=== PATIENT | male | born 1960 | race Caucasian/White ===

== ENCOUNTER 2017-03-12 01:05 | Emergency (ER) | payer OTHER ==
[~2017-03-12] VITALS: Ht 170.2 cm; Wt 86.4 kg
[~2017-03-12 01:05] MED LIST: SULF1TAB42 PO
[2017-03-12 01:54] LABS: BASOPHILS % (AUTO) 0.3 % (0.0-2.0); EOSINOPHILS % (AUTO) 1.4 % (1.0-6.0); HEMATOCRIT 39.8 % (41-53); HEMOGLOBIN 13.7 g/dL (13.5-17.5); LYMPHOCYTES % (AUTO) 11.8 % (22.0-44.0); MEAN CORPUSCULAR HEMOGLOBIN 32.4 pg (26.0-34.0); MEAN CORPUSCULAR HGB CONC 34.3 G/dL (31.0-37.0); MEAN CORPUSCULAR VOLUME 95 fL (80-100); MONOCYTES # (AUTO) 0.5 K/uL (0.1-1.0); MONOCYTES % (AUTO) 5.7 % (2.0-9.0); NEUTROPHILS # (AUTO) 6.7 K/uL (1.8-7.7); NEUTROPHILS % (AUTO) 80.8 % (40.0-70.0); PLATELET COUNT (AUTO) 296 K/uL (150-450); RED BLOOD CELL COUNT(AUTO) 4.21 MIL/uL (4.50-5.90); RED CELL DISTRIBUTION WIDTH 13.6 % (11.5-14.5); WHITE BLOOD COUNT (AUTO) 8.3 K/uL (4.5-11.0)
[2017-03-12 01:56] LABS: ANION GAP 12 mmol/L (8-16); CARBON DIOXIDE 23 mmol/L (22-29); CHLORIDE 101 mmol/L (98-107); CREATININE 0.89 mg/dL (0.60-1.30); GLOMERULAR FILTR. RATE CALC > 60 mL/min (>60); POTASSIUM 3.7 mmol/L (3.5-5.1); SODIUM SERUM 136 mmol/L (136-145); UREA NITROGEN, BLOOD 11 mg/dL (7-18)
[2017-03-12] MEDS ORDERED: CLINDAMYCIN HCL 150 MG CAPSULE PO ONE (02:00)
[2017-03-12] MEDS ORDERED: CefTRIAXone SODIUM 1 GM/VIAL IM ONE (02:00)
[2017-03-12] MEDS ORDERED: LIDOCAINE HCL/PF 1% 2 ML VIAL IM ONE (02:00)
[2017-03-12] MEDS ORDERED: TraMADol HCL 50 MG TABLET PO ONE (02:00)
[2017-03-12 02:02] LABS: ALANINE AMINOTRANSFERASE 29 U/L (12-78); ALBUMIN 3.4 g/dL (3.4-5.0); ASPARTATE AMINOTRANSFERASE 14 U/L (15-37); BILIRUBIN,TOTAL 0.4 mg/dL (0.1-1.0); TOTAL PROTEIN, SERUM 7.7 g/dL (6.4-8.2)
[2017-03-12 02:59] VITALS: BP 133/81
== END 2017-03-12 03:06 | disposition home or self-care (01) ==
LOC: EMS 01:08
DX: L03.116 Cellulitis of left lower limb (principal); M79.89 Other specified soft tissue disorders; F15.10 Other stimulant abuse, uncomplicated; F17.210 Nicotine dependence, cigarettes, uncomplicated
CPT/HCPCS: 36415; 73630; 80053; 85025; 87040; 96372; 99285; 99406; J0696; J3490

== ENCOUNTER 2018-03-01 23:34 | Emergency (ER) | payer OTHER ==
[~2018-03-01] VITALS: Ht 170.2 cm; Wt 90.9 kg
[2018-03-02 00:38] LABS: APPEARANCE,URINE CLOUDY (CLEAR); BILIRUBIN,URINE NEGATIVE (NEGATIVE); GLUCOSE, URINE (UA) NEGATIVE (NEGATIVE); KETONES,URINE NEGATIVE (NEGATIVE); LEUKOCYTE ESTERASE ,URINE LARGE (NEGATIVE); NITRATE,URINE NEGATIVE (NEGATIVE); OCCULT BLOOD,URINE MODERATE (NEGATIVE); PROTEIN,URINE TRACE (NEGATIVE); UROBILINOGEN,URINE 0.2 mg/dL (<=1.0)
[2018-03-02 00:49] LABS: EOSINOPHILS % (AUTO) 2.2 % (1.0-6.0); HEMOGLOBIN 14.1 g/dL (13.5-17.5); LYMPHOCYTES # (AUTO) 1.2 K/uL (1.0-4.8); MEAN CORPUSCULAR HEMOGLOBIN 32.7 pg (26.0-34.0); MEAN CORPUSCULAR HGB CONC 35.3 G/dL (31.0-37.0); MEAN CORPUSCULAR VOLUME 93 fL (80-100); MONOCYTES # (AUTO) 0.8 K/uL (0.1-1.0); MONOCYTES % (AUTO) 8.5 % (2.0-9.0); NEUTROPHILS # (AUTO) 7.2 K/uL (1.8-7.7); NEUTROPHILS % (AUTO) 75.3 % (40.0-70.0); PLATELET COUNT (AUTO) 307 K/uL (150-450); RED BLOOD CELL COUNT(AUTO) 4.32 MIL/uL (4.50-5.90); RED CELL DISTRIBUTION WIDTH 12.5 % (11.5-14.5)
[2018-03-02 01:06] LABS: ANION GAP 9 mmol/L (8-16); CARBON DIOXIDE 26 mmol/L (22-29); CHLORIDE 98 mmol/L (98-107); CREATININE 1.02 mg/dL (0.60-1.30); GLOMERULAR FILTR. RATE CALC > 60 mL/min (>60); GLUCOSE,RANDOM 148 mg/dL (70-110); SODIUM SERUM 133 mmol/L (136-145); UREA NITROGEN, BLOOD 9 mg/dL (7-18)
[2018-03-02 01:12] LABS: ALANINE AMINOTRANSFERASE 34 U/L (12-78); ALBUMIN 3.4 g/dL (3.4-5.0); ALKALINE PHOSPHATASE 97 U/L (46-116); ASPARTATE AMINOTRANSFERASE 16 U/L (15-37); BILIRUBIN,TOTAL 0.5 mg/dL (0.1-1.0); TOTAL PROTEIN, SERUM 7.8 g/dL (6.4-8.2)
[2018-03-02 01:26] LABS: BACTERIA,URINE Moderate /HPF (None Seen); SQUAMOUS EPITHELIAL CELL,UR Few /LPF (None Seen); WBC,URINE 51-100 /HPF (0-5)
[2018-03-02 01:31] VITALS: BP 136/86
== END 2018-03-02 02:45 | disposition home or self-care (01) ==
LOC: EMS 23:35
DX: J40 Bronchitis, not specified as acute or chronic (principal); R07.89 Other chest pain; F15.90 Other stimulant use, unspecified, uncomplicated; F17.210 Nicotine dependence, cigarettes, uncomplicated
CPT/HCPCS: 87086; 93005; 99285

== ENCOUNTER 2018-03-06 02:44 | Emergency (ER) | payer OTHER ==
[~2018-03-06] VITALS: Ht 170.2 cm; Wt 90.9 kg
[2018-03-06 04:38] LABS: BASOPHILS % (AUTO) 0.9 % (0.0-2.0); EOSINOPHILS % (AUTO) 4.7 % (1.0-6.0); HEMATOCRIT 39.4 % (41-53); HEMOGLOBIN 13.8 g/dL (13.5-17.5); LYMPHOCYTES # (AUTO) 1.3 K/uL (1.0-4.8); MEAN CORPUSCULAR HEMOGLOBIN 32.2 pg (26.0-34.0); MEAN CORPUSCULAR VOLUME 92 fL (80-100); MONOCYTES # (AUTO) 1.1 K/uL (0.1-1.0); MONOCYTES % (AUTO) 11.2 % (2.0-9.0); NEUTROPHILS # (AUTO) 6.7 K/uL (1.8-7.7); NEUTROPHILS % (AUTO) 69.2 % (40.0-70.0); PLATELET COUNT (AUTO) 342 K/uL (150-450); RED BLOOD CELL COUNT(AUTO) 4.28 MIL/uL (4.50-5.90); RED CELL DISTRIBUTION WIDTH 12.5 % (11.5-14.5)
[2018-03-06 04:46] LABS: ANION GAP 8 mmol/L (8-16); CALCIUM, TOTAL 8.8 mg/dL (8.8-10.5); CARBON DIOXIDE 27 mmol/L (22-29); CHLORIDE 101 mmol/L (98-107); CREATININE 0.93 mg/dL (0.60-1.30); GLOMERULAR FILTR. RATE CALC > 60 mL/min (>60); GLUCOSE,RANDOM 126 mg/dL (70-110); POTASSIUM 4.1 mmol/L (3.5-5.1); SODIUM SERUM 136 mmol/L (136-145); UREA NITROGEN, BLOOD 10 mg/dL (7-18)
[2018-03-06 04:48] LABS: INR 0.9 (0.9-1.1); PROTHROMBIN TIME 9.8 SEC (9.4-11.6)
[2018-03-06 04:52] LABS: ALANINE AMINOTRANSFERASE 28 U/L (12-78); ALBUMIN 3.1 g/dL (3.4-5.0); ALKALINE PHOSPHATASE 94 U/L (46-116); ASPARTATE AMINOTRANSFERASE 13 U/L (15-37); BILIRUBIN,TOTAL 0.4 mg/dL (0.1-1.0); LIPASE 149 U/L (73-393); TOTAL PROTEIN, SERUM 7.5 g/dL (6.4-8.2)
[2018-03-06 04:55] LABS: B-TYPE NATRIURETIC PEPTIDE 16 pg/mL (0-100)
[2018-03-06] MEDS ORDERED: ONDANSETRON HCL 4 MG/2 ML VIAL IVP ONE (05:00)
[2018-03-06] MEDS ORDERED: FentaNYL CITRATE-PF 100 MCG/2 ML VIAL IVP ONE (05:00)
[2018-03-06] MEDS ORDERED: BARIUM SULFATE 0.1% SUSPENSION 450 ML BOTTLE PO ONE (05:00)
[2018-03-06] MEDS ORDERED: IOVERSOL 350 MG/ML 150 ML VIAL ONE (05:31)
[2018-03-06] MEDS ORDERED: SODIUM CHLORIDE 0.9% 100 ML ONE (05:32)
[2018-03-06] MEDS ORDERED: DOXYCYCLINE HYCLATE 100 MG CAPSULE PO ONE (06:45)
[2018-03-06] MEDS ORDERED: CefTRIAXone SODIUM 1 GM in DEXTROSE 5%-WATER 10 ML IV ONE (06:45)
[2018-03-06 06:54] LABS: AMPHET/METH SCREEN,URINE POSITIVE (NEGATIVE); BARBITURATE SCREEN, URINE NEGATIVE (NEGATIVE); BENZODIAZEPINES SCREEN,URINE NEGATIVE (NEGATIVE); CANNABINOID SCREEN,URINE NEGATIVE (NEGATIVE); COCAINE SCREEN,URINE NEGATIVE (NEGATIVE); METHADONE SCREEN, URINE NEGATIVE (NEGATIVE); OPIATE SCREEN,URINE NEGATIVE (NEGATIVE)
[2018-03-06 06:55] LABS: PHENCYCLIDINE SCREEN,URINE NEGATIVE (NEGATIVE)
[2018-03-06 07:06] LABS: APPEARANCE,URINE CLEAR (CLEAR); BILIRUBIN,URINE NEGATIVE (NEGATIVE); GLUCOSE, URINE (UA) NEGATIVE (NEGATIVE); KETONES,URINE NEGATIVE (NEGATIVE); LEUKOCYTE ESTERASE ,URINE NEGATIVE (NEGATIVE); NITRATE,URINE NEGATIVE (NEGATIVE); OCCULT BLOOD,URINE NEGATIVE (NEGATIVE); PROTEIN,URINE NEGATIVE (NEGATIVE)
[2018-03-06 07:11] VITALS: BP 133/87
[2018-03-06 07:17] LABS: BACTERIA,URINE None Seen /HPF (None Seen); RBC,URINE None Seen /HPF (0-2); SQUAMOUS EPITHELIAL CELL,UR Few /LPF (None Seen)
== END 2018-03-06 07:52 | disposition home or self-care (01) ==
LOC: EMS 02:44
DX: N45.1 Epididymitis (principal); K76.0 Fatty (change of) liver, not elsewhere classified; F15.10 Other stimulant abuse, uncomplicated; M79.89 Other specified soft tissue disorders; R11.10 Vomiting, unspecified; R06.02 Shortness of breath; F31.9 Bipolar disorder, unspecified; F17.210 Nicotine dependence, cigarettes, uncomplicated
CPT/HCPCS: 36415; 71045; 74177; 76870; 80053; 80307; 81001; 83605; 83690; 83880; 84484; 85025; 85610; 85730; 87040; 87086; 93005; 96365; 96375; 99285; G0480; J0696; J2405; J3010; J7050; J7060; Q9967; Z7610

== ENCOUNTER 2018-03-10 21:36 | Emergency (ER) | payer OTHER ==
[~2018-03-10] VITALS: Ht 167.6 cm; Wt 90.9 kg
[2018-03-10] MEDS ORDERED: ABX PO (21:51)
[2018-03-10 22:39] LABS: APPEARANCE,URINE CLEAR (CLEAR); BILIRUBIN,URINE NEGATIVE (NEGATIVE); GLUCOSE, URINE (UA) NEGATIVE (NEGATIVE); KETONES,URINE NEGATIVE (NEGATIVE); LEUKOCYTE ESTERASE ,URINE TRACE (NEGATIVE); NITRATE,URINE NEGATIVE (NEGATIVE); OCCULT BLOOD,URINE NEGATIVE (NEGATIVE); PH,URINE 6.5 (5.0-8.0); PROTEIN,URINE NEGATIVE (NEGATIVE); UROBILINOGEN,URINE 0.2 mg/dL (<=1.0)
[2018-03-10 22:52] LABS: RBC,URINE None Seen /HPF (0-2)
[2018-03-10 22:53] LABS: BACTERIA,URINE None Seen /HPF (None Seen); SQUAMOUS EPITHELIAL CELL,UR Rare /LPF (None Seen)
[2018-03-10 23:59] LABS: BASOPHILS % (AUTO) 0.6 % (0.0-2.0); EOSINOPHILS % (AUTO) 2.8 % (1.0-6.0); HEMATOCRIT 37.9 % (41-53); HEMOGLOBIN 13.3 g/dL (13.5-17.5); LYMPHOCYTES # (AUTO) 1.4 K/uL (1.0-4.8); LYMPHOCYTES % (AUTO) 18.4 % (22.0-44.0); MEAN CORPUSCULAR HEMOGLOBIN 32.7 pg (26.0-34.0); MEAN CORPUSCULAR HGB CONC 35.1 G/dL (31.0-37.0); MEAN CORPUSCULAR VOLUME 93 fL (80-100); MONOCYTES # (AUTO) 0.7 K/uL (0.1-1.0); MONOCYTES % (AUTO) 9.6 % (2.0-9.0); NEUTROPHILS # (AUTO) 5.1 K/uL (1.8-7.7); NEUTROPHILS % (AUTO) 68.6 % (40.0-70.0); PLATELET COUNT (AUTO) 321 K/uL (150-450); RED BLOOD CELL COUNT(AUTO) 4.07 MIL/uL (4.50-5.90); RED CELL DISTRIBUTION WIDTH 12.5 % (11.5-14.5)
[2018-03-11] MEDS ORDERED: CEPHALEXIN MONOHYDRATE 500 MG CAPSULE PO ONE
[2018-03-11] MEDS ORDERED: ACETAMINOPHEN 500 MG TABLET PO ONE
[2018-03-11 00:06] LABS: ANION GAP 8 mmol/L (8-16); CALCIUM, TOTAL 8.5 mg/dL (8.8-10.5); CARBON DIOXIDE 26 mmol/L (22-29); CHLORIDE 101 mmol/L (98-107); CREATININE 0.82 mg/dL (0.60-1.30); GLOMERULAR FILTR. RATE CALC > 60 mL/min (>60); GLUCOSE,RANDOM 91 mg/dL (70-110); POTASSIUM 3.8 mmol/L (3.5-5.1); SODIUM SERUM 135 mmol/L (136-145); UREA NITROGEN, BLOOD 7 mg/dL (7-18)
[2018-03-11 00:12] LABS: ALANINE AMINOTRANSFERASE 25 U/L (12-78); ALBUMIN 3.1 g/dL (3.4-5.0); ALKALINE PHOSPHATASE 87 U/L (46-116); ASPARTATE AMINOTRANSFERASE 11 U/L (15-37); BILIRUBIN,TOTAL 0.2 mg/dL (0.1-1.0); LIPASE 117 U/L (73-393); TOTAL PROTEIN, SERUM 7.4 g/dL (6.4-8.2)
[2018-03-11 00:54] VITALS: BP 138/88
[2018-03-11 01:17] LABS: AMPHET/METH SCREEN,URINE POSITIVE (NEGATIVE); BARBITURATE SCREEN, URINE NEGATIVE (NEGATIVE); BENZODIAZEPINES SCREEN,URINE NEGATIVE (NEGATIVE); CANNABINOID SCREEN,URINE NEGATIVE (NEGATIVE); COCAINE SCREEN,URINE NEGATIVE (NEGATIVE); METHADONE SCREEN, URINE NEGATIVE (NEGATIVE); OPIATE SCREEN,URINE NEGATIVE (NEGATIVE); PHENCYCLIDINE SCREEN,URINE NEGATIVE (NEGATIVE)
== END 2018-03-11 00:56 | disposition home or self-care (01) ==
LOC: EMS 21:37
DX: N45.1 Epididymitis (principal); F41.9 Anxiety disorder, unspecified; F15.10 Other stimulant abuse, uncomplicated; F31.9 Bipolar disorder, unspecified; K21.9 Gastro-esophageal reflux disease without esophagitis; F17.210 Nicotine dependence, cigarettes, uncomplicated
CPT/HCPCS: 99284; 99406

== ENCOUNTER 2018-09-06 18:11 | Emergency (ER) | payer OTHER ==
[~2018-09-06] VITALS: Ht 167.6 cm; Wt 84.1 kg
[~2018-09-06 18:11] MED LIST changes: +ABX PO; -SULF1TAB42 PO
[2018-09-06 18:25] VITALS: BP 156/96
[2018-09-06 19:16] LABS: APPEARANCE,URINE CLEAR (CLEAR); BILIRUBIN,URINE NEGATIVE (NEGATIVE); GLUCOSE, URINE (UA) >=1000 mg/dL (NEGATIVE); KETONES,URINE NEGATIVE (NEGATIVE); LEUKOCYTE ESTERASE ,URINE NEGATIVE (NEGATIVE); NITRATE,URINE NEGATIVE (NEGATIVE); OCCULT BLOOD,URINE NEGATIVE (NEGATIVE); PROTEIN,URINE NEGATIVE (NEGATIVE); UROBILINOGEN,URINE 0.2 mg/dL (<=1.0)
[2018-09-06 19:54] LABS: WBC,URINE 0-2 /HPF (0-5)
[2018-09-06 19:55] LABS: BACTERIA,URINE None Seen /HPF (None Seen)
[2018-09-06 19:56] LABS: RBC,URINE 0-2 /HPF (0-2); SQUAMOUS EPITHELIAL CELL,UR Rare /LPF (None Seen)
== END 2018-09-06 21:23 | disposition left against medical advice (07) ==
LOC: EMS 18:11
DX: R11.2 Nausea with vomiting, unspecified (principal); Z53.21 Procedure and treatment not carried out due to patient leaving prior to being seen by health care provider
CPT/HCPCS: 93005

== ENCOUNTER 2018-10-10 19:49 | Emergency (ER) | payer OTHER ==
[~2018-10-10] VITALS: Ht 167.6 cm; Wt 90.9 kg
[~2018-10-10 19:49] MED LIST changes: -ABX PO; +GLIP5 PO; +METF-960 PO
[2018-10-10] MEDS ORDERED: METF-960 PO (20:22)
[2018-10-10 20:28] LABS: GLUCOSE,POINT OF CARE 345 MG/DL (70-110)
[2018-10-10 20:55] LABS: EOSINOPHILS % (AUTO) 0.9 % (1.0-6.0); HEMATOCRIT 37.7 % (41-53); LYMPHOCYTES # (AUTO) 0.8 K/uL (1.0-4.8); LYMPHOCYTES % (AUTO) 17.2 % (22.0-44.0); MEAN CORPUSCULAR HEMOGLOBIN 31.6 pg (26.0-34.0); MEAN CORPUSCULAR HGB CONC 34.4 G/dL (31.0-37.0); MEAN CORPUSCULAR VOLUME 92 fL (80-100); MONOCYTES # (AUTO) 0.5 K/uL (0.1-1.0); MONOCYTES % (AUTO) 10.7 % (2.0-9.0); NEUTROPHILS # (AUTO) 3.4 K/uL (1.8-7.7); NEUTROPHILS % (AUTO) 70.2 % (40.0-70.0); PLATELET COUNT (AUTO) 220 K/uL (150-450); RED CELL DISTRIBUTION WIDTH 13.4 % (11.5-14.5)
[2018-10-10 21:10] LABS: ANION GAP 15 mmol/L (8-16); CALCIUM, TOTAL 9.5 mg/dL (8.8-10.5); CARBON DIOXIDE 20 mmol/L (22-29); CHLORIDE 97 mmol/L (98-107); CREATININE 0.93 mg/dL (0.60-1.30); GLOMERULAR FILTR. RATE CALC > 60 mL/min (>60); GLUCOSE,RANDOM 336 mg/dL (70-110); POTASSIUM 4.5 mmol/L (3.5-5.1); SODIUM SERUM 132 mmol/L (136-145); UREA NITROGEN, BLOOD 14 mg/dL (7-18)
[2018-10-10 21:17] LABS: ALANINE AMINOTRANSFERASE 22 U/L (12-78); ALBUMIN 3.2 g/dL (3.4-5.0); ALKALINE PHOSPHATASE 101 U/L (46-116); ASPARTATE AMINOTRANSFERASE 22 U/L (15-37); BILIRUBIN,TOTAL 0.5 mg/dL (0.1-1.0); LIPASE 207 U/L (73-393); TOTAL PROTEIN, SERUM 7.3 g/dL (6.4-8.2)
[2018-10-10 21:54] LABS: AMPHET/METH SCREEN,URINE POSITIVE (NEGATIVE); APPEARANCE,URINE CLEAR (CLEAR); BARBITURATE SCREEN, URINE NEGATIVE (NEGATIVE); BENZODIAZEPINES SCREEN,URINE NEGATIVE (NEGATIVE); BILIRUBIN,URINE NEGATIVE (NEGATIVE); CANNABINOID SCREEN,URINE NEGATIVE (NEGATIVE); COCAINE SCREEN,URINE NEGATIVE (NEGATIVE); GLUCOSE, URINE (UA) >=1000 mg/dL (NEGATIVE); KETONES,URINE >=80 mg/dL (NEGATIVE); LEUKOCYTE ESTERASE ,URINE NEGATIVE (NEGATIVE); METHADONE SCREEN, URINE NEGATIVE (NEGATIVE); NITRATE,URINE NEGATIVE (NEGATIVE); OCCULT BLOOD,URINE NEGATIVE (NEGATIVE); OPIATE SCREEN,URINE NEGATIVE (NEGATIVE); PH,URINE 5.5 (5.0-8.0); PHENCYCLIDINE SCREEN,URINE NEGATIVE (NEGATIVE); PROTEIN,URINE NEGATIVE (NEGATIVE); UROBILINOGEN,URINE 0.2 mg/dL (<=1.0)
[2018-10-10 22:09] LABS: BACTERIA,URINE None Seen /HPF (None Seen); RBC,URINE None Seen /HPF (0-2); SQUAMOUS EPITHELIAL CELL,UR None Seen /LPF (None Seen); WBC,URINE 0-2 /HPF (0-5)
[2018-10-10] MEDS ORDERED: SODIUM CHLORIDE 0.9% 1,000 ML IV ONE ×2 (22:45→23:45)
[2018-10-10] MEDS ORDERED: INSULIN REGULAR, HUMAN 100 UNITS/ML IVP ONE (22:45)
[2018-10-10] MEDS ORDERED: INSULIN REGULAR, HUMAN 100 UNITS/ML SQ ONE (22:45)
[2018-10-10 23:43] LABS: GLUCOSE,POINT OF CARE 279 MG/DL (70-110)
[2018-10-11] MEDS ORDERED: INSULIN REGULAR, HUMAN 100 UNITS/ML IVP ONE
[2018-10-11 00:15] VITALS: BP 129/75
[2018-10-11 00:28] LABS: GLUCOSE,POINT OF CARE 280 MG/DL (70-110)
== END 2018-10-11 00:20 | disposition home or self-care (01) ==
LOC: EMS 19:50
DX: R73.9 Hyperglycemia, unspecified (principal); E86.0 Dehydration; F31.9 Bipolar disorder, unspecified; K21.9 Gastro-esophageal reflux disease without esophagitis; F15.90 Other stimulant use, unspecified, uncomplicated; F17.210 Nicotine dependence, cigarettes, uncomplicated; Z79.84 Long term (current) use of oral hypoglycemic drugs
CPT/HCPCS: 36415; 80053; 80307; 81001; 82962; 83690; 84484; 85025; 93005; 96361; 96372; 96374; 99284; J1815 ×2; J7030

== ENCOUNTER 2019-04-08 01:05 | Emergency (ER) | payer OTHER ==
[~2019-04-08] VITALS: Ht 167.6 cm; Wt 72.7 kg
[2019-04-08 01:12] VITALS: BP 135/82
[2019-04-08 01:20] LABS: GLUCOSE,POINT OF CARE 131 MG/DL (70-110)
[2019-04-08 02:22] LABS: BASOPHILS % (AUTO) 0.3 % (0.0-2.0); EOSINOPHILS % (AUTO) 1.3 % (1.0-6.0); HEMATOCRIT 38.2 % (41-53); HEMOGLOBIN 12.9 g/dL (13.5-17.5); LYMPHOCYTES % (AUTO) 15.6 % (22.0-44.0); MEAN CORPUSCULAR HEMOGLOBIN 32.6 pg (26.0-34.0); MEAN CORPUSCULAR HGB CONC 33.7 G/dL (31.0-37.0); MEAN CORPUSCULAR VOLUME 97 fL (80-100); MONOCYTES # (AUTO) 0.5 K/uL (0.1-1.0); NEUTROPHILS # (AUTO) 4.6 K/uL (1.8-7.7); NEUTROPHILS % (AUTO) 74.8 % (40.0-70.0); PLATELET COUNT (AUTO) 290 K/uL (150-450); RED BLOOD CELL COUNT(AUTO) 3.95 MIL/uL (4.50-5.90); RED CELL DISTRIBUTION WIDTH 13.9 % (11.5-14.5)
[2019-04-08 02:24] LABS: ANION GAP 11 mmol/L (8-16); CARBON DIOXIDE 20 mmol/L (22-29); CHLORIDE 105 mmol/L (98-107); CREATININE 0.86 mg/dL (0.60-1.30); GLOMERULAR FILTR. RATE CALC > 60 mL/min (>60); GLUCOSE,RANDOM 123 mg/dL (70-110); POTASSIUM 3.7 mmol/L (3.5-5.1); SODIUM SERUM 136 mmol/L (136-145); UREA NITROGEN, BLOOD 22 mg/dL (7-18)
[2019-04-08 02:31] LABS: ALANINE AMINOTRANSFERASE 45 U/L (12-78); ALBUMIN 3.5 g/dL (3.4-5.0); ALKALINE PHOSPHATASE 88 U/L (46-116); ASPARTATE AMINOTRANSFERASE 26 U/L (15-37); BILIRUBIN,TOTAL 0.4 mg/dL (0.1-1.0); TOTAL PROTEIN, SERUM 7.1 g/dL (6.4-8.2)
== END 2019-04-08 03:40 | disposition left against medical advice (07) ==
LOC: EMS 01:06
DX: R73.9 Hyperglycemia, unspecified (principal); F31.9 Bipolar disorder, unspecified; K21.9 Gastro-esophageal reflux disease without esophagitis; F17.210 Nicotine dependence, cigarettes, uncomplicated; Z53.21 Procedure and treatment not carried out due to patient leaving prior to being seen by health care provider
CPT/HCPCS: 36415; 80053; 82962; 85025; G0480

== ENCOUNTER 2019-08-25 21:58 | Emergency (ER) | payer OTHER ==
[~2019-08-25] VITALS: Ht 167.6 cm; Wt 79.5 kg
[2019-08-25 22:21] VITALS: BP 136/84
[2019-08-25 22:37] LABS: GLUCOSE,POINT OF CARE > 600 MG/DL (70-110)
[2019-08-25 22:52] LABS: BASOPHILS % (AUTO) 0.6 % (0.0-2.0); EOSINOPHILS % (AUTO) 1.3 % (1.0-6.0); HEMATOCRIT 41.1 % (41-53); HEMOGLOBIN 13.8 g/dL (13.5-17.5); LYMPHOCYTES # (AUTO) 0.8 K/uL (1.0-4.8); LYMPHOCYTES % (AUTO) 17.9 % (22.0-44.0); MEAN CORPUSCULAR HEMOGLOBIN 32.3 pg (26.0-34.0); MEAN CORPUSCULAR HGB CONC 33.6 G/dL (31.0-37.0); MEAN CORPUSCULAR VOLUME 96 fL (80-100); MONOCYTES # (AUTO) 0.4 K/uL (0.1-1.0); MONOCYTES % (AUTO) 9.2 % (2.0-9.0); NEUTROPHILS # (AUTO) 3.3 K/uL (1.8-7.7); PLATELET COUNT (AUTO) 250 K/uL (150-450); RED BLOOD CELL COUNT(AUTO) 4.28 MIL/uL (4.50-5.90); RED CELL DISTRIBUTION WIDTH 12.6 % (11.5-14.5)
[2019-08-25 23:06] LABS: ANION GAP 12 mmol/L (8-16); CARBON DIOXIDE 21 mmol/L (22-29); CHLORIDE 90 mmol/L (98-107); CREATININE 1.39 mg/dL (0.60-1.30); GLOMERULAR FILTR. RATE CALC 52 mL/min (>60); UREA NITROGEN, BLOOD 20 mg/dL (7-18)
[2019-08-25 23:09] LABS: ALANINE AMINOTRANSFERASE 28 U/L (12-78); ALBUMIN 3.2 g/dL (3.4-5.0); ALKALINE PHOSPHATASE 103 U/L (46-116); ASPARTATE AMINOTRANSFERASE 10 U/L (15-37); BILIRUBIN,TOTAL 0.5 mg/dL (0.1-1.0); TOTAL PROTEIN, SERUM 7.1 g/dL (6.4-8.2)
[2019-08-25 23:09] LABS: APPEARANCE,URINE CLEAR (CLEAR); BILIRUBIN,URINE NEGATIVE (NEGATIVE); GLUCOSE, URINE (UA) >=1000 mg/dL (NEGATIVE); KETONES,URINE NEGATIVE (NEGATIVE); LEUKOCYTE ESTERASE ,URINE NEGATIVE (NEGATIVE); NITRATE,URINE NEGATIVE (NEGATIVE); OCCULT BLOOD,URINE NEGATIVE (NEGATIVE); PROTEIN,URINE NEGATIVE (NEGATIVE); UROBILINOGEN,URINE 0.2 mg/dL (<=1.0)
[2019-08-25 23:22] LABS: BACTERIA,URINE None Seen /HPF (None Seen); RBC,URINE None Seen /HPF (0-2); SQUAMOUS EPITHELIAL CELL,UR None Seen /LPF (None Seen); WBC,URINE None Seen /HPF (0-5)
[2019-08-25 23:30] LABS: ACETONE,BLOOD NEGATIVE (NEGATIVE)
[2019-08-25 23:42] LABS: GLUCOSE,RANDOM 964 mg/dL (70-110); SODIUM SERUM 123 mmol/L (136-145)
== END 2019-08-26 02:43 | disposition left against medical advice (07) ==
LOC: EMS 22:01
DX: R73.9 Hyperglycemia, unspecified (principal); Z53.21 Procedure and treatment not carried out due to patient leaving prior to being seen by health care provider

== ENCOUNTER 2020-07-18 16:50 | Emergency (ER) | payer OTHER ==
[~2020-07-18] VITALS: Ht 170.2 cm; Wt 68.2 kg
[2020-07-18 17:09] VITALS: BP 125/71
[2020-07-18 17:21] LABS: GLUCOSE,POINT OF CARE > 600 MG/DL (70-110)
== END 2020-07-18 19:54 | disposition left against medical advice (07) ==
LOC: EMS 16:50
DX: R30.9 Painful micturition, unspecified (principal); Z53.21 Procedure and treatment not carried out due to patient leaving prior to being seen by health care provider

== ENCOUNTER 2020-07-19 01:09 | Emergency (ER) | payer OTHER ==
[~2020-07-19] VITALS: Ht 162.6 cm; Wt 69.1 kg
[2020-07-19 01:30] LABS: GLUCOSE,POINT OF CARE 454 MG/DL (70-110)
[2020-07-19] MEDS ORDERED: SODIUM CHLORIDE 0.9% 1,000 ML IV ONE (02:15)
[2020-07-19] MEDS ORDERED: INSULIN REGULAR, HUMAN 100 UNITS/ML IVP ONE (02:15)
[2020-07-19 03:48] LABS: EOSINOPHILS % (AUTO) 1.5 % (1.0-6.0); HEMATOCRIT 35.8 % (41-53); LYMPHOCYTES # (AUTO) 1.2 K/uL (1.0-4.8); LYMPHOCYTES % (AUTO) 20.5 % (22.0-44.0); MEAN CORPUSCULAR HEMOGLOBIN 31.8 pg (26.0-34.0); MEAN CORPUSCULAR HGB CONC 33.4 G/dL (31.0-37.0); MEAN CORPUSCULAR VOLUME 95 fL (80-100); MONOCYTES # (AUTO) 0.4 K/uL (0.1-1.0); MONOCYTES % (AUTO) 6.5 % (2.0-9.0); NEUTROPHILS # (AUTO) 4.3 K/uL (1.8-7.7); NEUTROPHILS % (AUTO) 70.5 % (40.0-70.0); PLATELET COUNT (AUTO) 159 K/uL (150-450); RED BLOOD CELL COUNT(AUTO) 3.77 MIL/uL (4.50-5.90); RED CELL DISTRIBUTION WIDTH 13.1 % (11.5-14.5)
[2020-07-19 03:49] LABS: APPEARANCE,URINE CLEAR (CLEAR); BILIRUBIN,URINE NEGATIVE (NEGATIVE); GLUCOSE, URINE (UA) >=1000 mg/dL (NEGATIVE); KETONES,URINE TRACE mg/dL (NEGATIVE); LEUKOCYTE ESTERASE ,URINE NEGATIVE (NEGATIVE); NITRATE,URINE NEGATIVE (NEGATIVE); OCCULT BLOOD,URINE NEGATIVE (NEGATIVE); PH,URINE 6.5 (5.0-8.0); PROTEIN,URINE NEGATIVE (NEGATIVE); UROBILINOGEN,URINE 0.2 mg/dL (<=1.0)
[2020-07-19 03:59] LABS: ALANINE AMINOTRANSFERASE 16 U/L (12-78); ALBUMIN 3.3 g/dL (3.4-5.0); ALKALINE PHOSPHATASE 93 U/L (46-116); ANION GAP 10 mmol/L (8-16); ASPARTATE AMINOTRANSFERASE 7 U/L (15-37); BILIRUBIN,TOTAL 0.3 mg/dL (0.1-1.0); CARBON DIOXIDE 25 mmol/L (22-29); CHLORIDE 94 mmol/L (98-107); CREATININE 0.91 mg/dL (0.60-1.30); GLOMERULAR FILTR. RATE CALC > 60 mL/min (>60); POTASSIUM 4.1 mmol/L (3.5-5.1); SODIUM SERUM 129 mmol/L (136-145); TOTAL PROTEIN, SERUM 7.9 g/dL (6.4-8.2); UREA NITROGEN, BLOOD 13 mg/dL (7-18)
[2020-07-19 04:01] LABS: BACTERIA,URINE Few /HPF (None Seen); RBC,URINE 0-2 /HPF (0-2); SQUAMOUS EPITHELIAL CELL,UR Few /LPF (None Seen); WBC,URINE 0-2 /HPF (0-5)
[2020-07-19 04:24] LABS: GLUCOSE,RANDOM 451 mg/dL (70-110)
[2020-07-19 06:03] VITALS: BP 117/65
== END 2020-07-19 06:43 | disposition home or self-care (01) ==
LOC: EMS 01:10
DX: E11.65 Type 2 diabetes mellitus with hyperglycemia (principal); F31.9 Bipolar disorder, unspecified; F15.90 Other stimulant use, unspecified, uncomplicated; F17.210 Nicotine dependence, cigarettes, uncomplicated; Z79.84 Long term (current) use of oral hypoglycemic drugs
CPT/HCPCS: 36415; 80053; 81001; 82009; 82962; 85025; 96361; 96374; 99283; J1815; J7030

== ENCOUNTER 2020-10-08 21:23 | Emergency (ER) | payer OTHER ==
[~2020-10-08] VITALS: Ht 170.2 cm; Wt 68.2 kg
[2020-10-08] MEDS ORDERED: INSULIN SQ (21:49)
[2020-10-08] MEDS ORDERED: MORPHINE SULFATE 2 MG/ML SYRINGE IVP ONE (23:45)
[2020-10-08] MEDS ORDERED: SODIUM CHLORIDE 0.9% 1,000 ML IV ONE (23:45)
[2020-10-08] MEDS ORDERED: VANCOMYCIN HCL 1.25 GM in DEXTROSE 5%-WATER 250 ML IV ONE (23:45)
[2020-10-08] MEDS ORDERED: 0.9% SODIUM CHLORIDE 10 ML SYRINGE IVP PRN (23:45)
[2020-10-09 01:42] LABS: BASOPHILS % (AUTO) 0.4 % (0.0-2.0); EOSINOPHILS % (AUTO) 0.2 % (1.0-6.0); HEMATOCRIT 31.1 % (41-53); HEMOGLOBIN 10.4 g/dL (13.5-17.5); LYMPHOCYTES # (AUTO) 0.8 K/uL (1.0-4.8); LYMPHOCYTES % (AUTO) 10.4 % (22.0-44.0); MEAN CORPUSCULAR HEMOGLOBIN 32.6 pg (26.0-34.0); MEAN CORPUSCULAR HGB CONC 33.6 G/dL (31.0-37.0); MEAN CORPUSCULAR VOLUME 97 fL (80-100); MONOCYTES % (AUTO) 12.3 % (2.0-9.0); NEUTROPHILS # (AUTO) 6.2 K/uL (1.8-7.7); NEUTROPHILS % (AUTO) 76.7 % (40.0-70.0); PLATELET COUNT (AUTO) 327 K/uL (150-450); RED CELL DISTRIBUTION WIDTH 12.5 % (11.5-14.5)
[2020-10-09 01:52] LABS: ANION GAP 13 mmol/L (8-16); CALCIUM, TOTAL 8.5 mg/dL (8.8-10.5); CARBON DIOXIDE 23 mmol/L (22-29); CHLORIDE 99 mmol/L (98-107); CREATININE 0.62 mg/dL (0.60-1.30); GLOMERULAR FILTR. RATE CALC > 60 mL/min (>60); GLUCOSE,RANDOM 266 mg/dL (70-110); POTASSIUM 4.1 mmol/L (3.5-5.1); SODIUM SERUM 135 mmol/L (136-145); UREA NITROGEN, BLOOD 9 mg/dL (7-18)
[2020-10-09 01:56] LABS: PROTHROMBIN TIME 10.4 SEC (9.4-11.6)
[2020-10-09 01:58] LABS: ALANINE AMINOTRANSFERASE 17 U/L (12-78); ALBUMIN 2.4 g/dL (3.4-5.0); ALKALINE PHOSPHATASE 78 U/L (46-116); ASPARTATE AMINOTRANSFERASE 8 U/L (15-37); BILIRUBIN,TOTAL 0.4 mg/dL (0.1-1.0); CREATINE KINASE, TOTAL ONLY 38 U/L (39-308)
[2020-10-09 02:01] LABS: LACTIC ACID 1.2 mmol/L (0.4-2.0)
[2020-10-09 02:30] VITALS: BP 137/85
[2020-10-09] MEDS ORDERED: CEPHALEXIN MONOHYDRATE 500 MG CAPSULE PO ONE (03:15)
[2020-10-09] MEDS ORDERED: SULFAMETHOX/TRIMETH DS 800-160 MG/TABLET PO ONE (03:15)
[2020-10-12] MEDS ORDERED: TAMS-13 PO (13:12)
[2020-10-12] MEDS ORDERED: INSU100I26 SQ (13:12)
== END 2020-10-09 03:17 | disposition home or self-care (01) ==
LOC: EMS 21:23
DX: L03.116 Cellulitis of left lower limb (principal)
CPT/HCPCS: 36415; 73590; 80053; 82009; 82550; 82962; 83605; 85025; 85610; 87040; 93005; 96365; 96366; 96375; 99285; J2270; J3370; J7060

== ENCOUNTER 2021-01-11 18:35 | Emergency (ER) | payer OTHER ==
[~2021-01-11] VITALS: Ht 170.2 cm; Wt 68.2 kg
[~2021-01-11 18:35] MED LIST changes: +INSU100I26 SQ; +TAMS-13 PO
[2021-01-11 18:56] LABS: GLUCOSE,POINT OF CARE > 600 MG/DL (70-110)
[2021-01-11] MEDS ORDERED: SODIUM CHLORIDE 0.9% 1,000 ML IV ONE (19:15)
[2021-01-11 19:19] LABS: BASOPHILS % (AUTO) 0.8 % (0.0-2.0); EOSINOPHILS % (AUTO) 0.6 % (1.0-6.0); HEMATOCRIT 36.5 % (41-53); HEMOGLOBIN 12.1 g/dL (13.5-17.5); LYMPHOCYTES % (AUTO) 25.7 % (22.0-44.0); MEAN CORPUSCULAR HEMOGLOBIN 31.7 pg (26.0-34.0); MEAN CORPUSCULAR HGB CONC 33.2 G/dL (31.0-37.0); MEAN CORPUSCULAR VOLUME 96 fL (80-100); MONOCYTES # (AUTO) 0.3 K/uL (0.1-1.0); NEUTROPHILS # (AUTO) 2.4 K/uL (1.8-7.7); NEUTROPHILS % (AUTO) 63.9 % (40.0-70.0); PLATELET COUNT (AUTO) 278 K/uL (150-450); RED BLOOD CELL COUNT(AUTO) 3.82 MIL/uL (4.50-5.90); RED CELL DISTRIBUTION WIDTH 13.8 % (11.5-14.5)
[2021-01-11] MEDS ORDERED: KETOROLAC TROMETHAMINE 30 MG/ML VIAL IVP ONE (19:30)
[2021-01-11 19:35] LABS: ALANINE AMINOTRANSFERASE 19 U/L (12-78); ALBUMIN 3.1 g/dL (3.4-5.0); ALKALINE PHOSPHATASE 81 U/L (46-116); ANION GAP 17 mmol/L (8-16); ASPARTATE AMINOTRANSFERASE 10 U/L (15-37); BILIRUBIN,TOTAL 0.2 mg/dL (0.1-1.0); CARBON DIOXIDE 20 mmol/L (22-29); CHLORIDE 92 mmol/L (98-107); CREATININE 0.96 mg/dL (0.60-1.30); GLOMERULAR FILTR. RATE CALC > 60 mL/min (>60); POTASSIUM 4.4 mmol/L (3.5-5.1); SODIUM SERUM 129 mmol/L (136-145); TOTAL PROTEIN, SERUM 7.6 g/dL (6.4-8.2); UREA NITROGEN, BLOOD 15 mg/dL (7-18)
[2021-01-11 19:37] LABS: GLUCOSE,RANDOM 700 mg/dL (70-110)
[2021-01-11] MEDS ORDERED: INSULIN REGULAR, HUMAN 100 UNITS/ML IVP ONE (19:45)
[2021-01-11] MEDS ORDERED: MORPHINE SULFATE 4 MG/ML SYRINGE IVP ONE (20:00)
[2021-01-11 20:25] VITALS: BP 123/74
[2021-01-11 20:34] LABS: GLUCOSE,POINT OF CARE 374 MG/DL (70-110)
== END 2021-01-11 20:43 | disposition home or self-care (01) ==
LOC: EMS 18:35
DX: S70.311A Abrasion, right thigh, initial encounter (principal); M25.571 Pain in right ankle and joints of right foot; E11.65 Type 2 diabetes mellitus with hyperglycemia; W10.8XXA Fall (on) (from) other stairs and steps, initial encounter; Y93.89 Activity, other specified; Y92.89 Other specified places as the place of occurrence of the external cause; Y99.8 Other external cause status
CPT/HCPCS: 36415; 73590; 73610; 80053; 82009; 82962; 85025; 96361; 96374; 96375; 99284; J1815; J1885; J2270; 82948

== ENCOUNTER 2021-02-23 00:24 | Emergency (ER) | payer OTHER ==
[~2021-02-23] VITALS: Ht 170.2 cm; Wt 68.2 kg
[2021-02-23 00:39] VITALS: BP 99/62
== END 2021-02-23 01:55 | disposition left against medical advice (07) ==
LOC: EMS 00:25
DX: R73.9 Hyperglycemia, unspecified (principal); Z53.21 Procedure and treatment not carried out due to patient leaving prior to being seen by health care provider

== ENCOUNTER 2021-04-09 19:16 | Emergency (ER) | payer OTHER ==
[~2021-04-09] VITALS: Ht 170.2 cm; Wt 68.2 kg
[~2021-04-09 19:16] MED LIST changes: -GLIP5 PO; -METF-960 PO; -TAMS-13 PO
[2021-04-09 20:07] LABS: BASOPHILS % (AUTO) 0.8 % (0.0-2.0); EOSINOPHILS % (AUTO) 1.4 % (1.0-6.0); HEMATOCRIT 38.7 % (41-53); HEMOGLOBIN 12.9 g/dL (13.5-17.5); LYMPHOCYTES # (AUTO) 1.2 K/uL (1.0-4.8); LYMPHOCYTES % (AUTO) 31.2 % (22.0-44.0); MEAN CORPUSCULAR HEMOGLOBIN 34.4 pg (26.0-34.0); MEAN CORPUSCULAR HGB CONC 33.2 G/dL (31.0-37.0); MEAN CORPUSCULAR VOLUME 104 fL (80-100); MONOCYTES # (AUTO) 0.3 K/uL (0.1-1.0); MONOCYTES % (AUTO) 8.6 % (2.0-9.0); NEUTROPHILS # (AUTO) 2.2 K/uL (1.8-7.7); PLATELET COUNT (AUTO) 290 K/uL (150-450); RED BLOOD CELL COUNT(AUTO) 3.74 MIL/uL (4.50-5.90); RED CELL DISTRIBUTION WIDTH 13.2 % (11.5-14.5)
[2021-04-09 20:13] LABS: APPEARANCE,URINE CLEAR (CLEAR); BILIRUBIN,URINE NEGATIVE (NEGATIVE); GLUCOSE, URINE (UA) >=1000 mg/dL (NEGATIVE); KETONES,URINE 15 mg/dL (NEGATIVE); LEUKOCYTE ESTERASE ,URINE NEGATIVE (NEGATIVE); NITRATE,URINE NEGATIVE (NEGATIVE); OCCULT BLOOD,URINE NEGATIVE (NEGATIVE); PROTEIN,URINE NEGATIVE (NEGATIVE); UROBILINOGEN,URINE 0.2 mg/dL (<=1.0)
[2021-04-09 20:21] LABS: ANION GAP 16 mmol/L (8-16); CALCIUM, TOTAL 8.7 mg/dL (8.8-10.5); CARBON DIOXIDE 20 mmol/L (22-29); CHLORIDE 93 mmol/L (98-107); CREATININE 0.98 mg/dL (0.60-1.30); GLOMERULAR FILTR. RATE CALC > 60 mL/min (>60); POTASSIUM 4.3 mmol/L (3.5-5.1); SODIUM SERUM 129 mmol/L (136-145); UREA NITROGEN, BLOOD 11 mg/dL (7-18)
[2021-04-09 20:23] LABS: ALANINE AMINOTRANSFERASE 24 U/L (12-78); ALBUMIN 3.5 g/dL (3.4-5.0); ALKALINE PHOSPHATASE 88 U/L (46-116); ASPARTATE AMINOTRANSFERASE 11 U/L (15-37); BILIRUBIN,TOTAL 0.4 mg/dL (0.1-1.0); LIPASE 477 U/L (73-393); PHOSPHORUS 3.3 mg/dL (2.5-4.9); TOTAL PROTEIN, SERUM 7.9 g/dL (6.4-8.2)
[2021-04-09 20:33] LABS: BACTERIA,URINE None Seen /HPF (None Seen); RBC,URINE None Seen /HPF (0-2); SQUAMOUS EPITHELIAL CELL,UR Few /LPF (None Seen); WBC,URINE None Seen /HPF (0-5)
[2021-04-09 20:34] LABS: GLUCOSE,RANDOM 798 mg/dL (70-110)
[2021-04-09] MEDS: INSULIN REGULAR, HUMAN 100 UNITS/ML IVP ONE ×2 (20:56→22:36)
[2021-04-09] MEDS: SODIUM CHLORIDE 0.9% 500 ML IV ONE (20:57)
[2021-04-09] MEDS: MORPHINE SULFATE 4 MG/ML SYRINGE IVP ONE (21:09)
[2021-04-09] MEDS: ONDANSETRON HCL 4 MG/2 ML VIAL IVP ONE (21:09)
[2021-04-09 22:44] LABS: GLUCOSE,POINT OF CARE 439 MG/DL (70-110)
[2021-04-09 22:53] LABS: ANION GAP 13 mmol/L (8-16); CALCIUM, TOTAL 8.4 mg/dL (8.8-10.5); CARBON DIOXIDE 24 mmol/L (22-29); CHLORIDE 96 mmol/L (98-107); CREATININE 0.78 mg/dL (0.60-1.30); GLOMERULAR FILTR. RATE CALC > 60 mL/min (>60); SODIUM SERUM 133 mmol/L (136-145); UREA NITROGEN, BLOOD 11 mg/dL (7-18)
[2021-04-09 23:00] LABS: GLUCOSE,RANDOM 453 mg/dL (70-110)
[2021-04-09 23:54] LABS: GLUCOSE,POINT OF CARE 298 MG/DL (70-110)
[2021-04-10] MEDS: SODIUM CHLORIDE 0.9% 1,000 ML IV ONE (00:22)
[2021-04-10 00:24] LABS: GLUCOSE,POINT OF CARE 347 MG/DL (70-110)
[2021-04-10 01:53] LABS: GLUCOSE,POINT OF CARE 257 MG/DL (70-110)
[2021-04-10 02:16] VITALS: BP 116/67
== END 2021-04-10 02:49 | disposition home or self-care (01) ==
LOC: EMS 19:18
DX: C61 Malignant neoplasm of prostate (principal); E11.65 Type 2 diabetes mellitus with hyperglycemia
CPT/HCPCS: 36415; 80053; 81001; 82009; 82962; 83690; 83735; 83930; 84100; 85025; 93005; 96361; 96374; 96375; 96376; 99284; J1815; J2270; J2405; J7040; 80048

== ENCOUNTER 2021-05-05 12:57 | Emergency (ER) | payer OTHER ==
[~2021-05-05] VITALS: Ht 170.2 cm; Wt 60.0 kg
[2021-05-05 13:33] LABS: GLUCOSE,POINT OF CARE 592 MG/DL (70-110)
[2021-05-05 13:49] LABS: BASOPHILS % (AUTO) 0.6 % (0.0-2.0); EOSINOPHILS % (AUTO) 0.6 % (1.0-6.0); HEMATOCRIT 40.4 % (41-53); HEMOGLOBIN 14.1 g/dL (13.5-17.5); LYMPHOCYTES # (AUTO) 0.4 K/uL (1.0-4.8); LYMPHOCYTES % (AUTO) 9.1 % (22.0-44.0); MEAN CORPUSCULAR HEMOGLOBIN 34.5 pg (26.0-34.0); MEAN CORPUSCULAR HGB CONC 34.8 G/dL (31.0-37.0); MEAN CORPUSCULAR VOLUME 99 fL (80-100); MONOCYTES # (AUTO) 0.6 K/uL (0.1-1.0); MONOCYTES % (AUTO) 14.2 % (2.0-9.0); NEUTROPHILS # (AUTO) 2.9 K/uL (1.8-7.7); NEUTROPHILS % (AUTO) 75.5 % (40.0-70.0); PLATELET COUNT (AUTO) 257 K/uL (150-450); RED BLOOD CELL COUNT(AUTO) 4.07 MIL/uL (4.50-5.90); RED CELL DISTRIBUTION WIDTH 13.3 % (11.5-14.5)
[2021-05-05] MEDS ORDERED: SODIUM CHLORIDE 0.9% 1,000 ML IV ONE (14:00)
[2021-05-05 14:10] LABS: ALANINE AMINOTRANSFERASE 23 U/L (12-78); ALBUMIN 3.5 g/dL (3.4-5.0); ALKALINE PHOSPHATASE 96 U/L (46-116); ANION GAP 8 mmol/L (8-16); ASPARTATE AMINOTRANSFERASE 13 U/L (15-37); BILIRUBIN,TOTAL 0.5 mg/dL (0.1-1.0); CALCIUM, TOTAL 8.9 mg/dL (8.8-10.5); CARBON DIOXIDE 27 mmol/L (22-29); CHLORIDE 94 mmol/L (98-107); CREATININE 0.83 mg/dL (0.60-1.30); GLOMERULAR FILTR. RATE CALC > 60 mL/min (>60); POTASSIUM 4.6 mmol/L (3.5-5.1); SODIUM SERUM 129 mmol/L (136-145); TOTAL PROTEIN, SERUM 7.9 g/dL (6.4-8.2); UREA NITROGEN, BLOOD 21 mg/dL (7-18)
[2021-05-05 14:11] LABS: GLUCOSE,RANDOM 589 mg/dL (70-110)
[2021-05-05 14:19] LABS: ACETONE,BLOOD NEGATIVE (NEGATIVE)
[2021-05-05 15:02] LABS: COVID AG,FIA SOURCE NASAL SWAB
[2021-05-05] MEDS ORDERED: KETOROLAC TROMETHAMINE 30 MG/ML VIAL IVP ONE (15:15)
[2021-05-05 16:23] LABS: INFLUENZA TYPE A NEGATIVE FOR TYPE A (NEGATIVE); INFLUENZA TYPE B NEGATIVE FOR TYPE B (NEGATIVE)
[2021-05-05 16:29] LABS: GLUCOSE,POINT OF CARE 414 MG/DL (70-110)
[2021-05-05] MEDS ORDERED: INSULIN REGULAR, HUMAN 100 UNITS/ML IVP ONE (16:30)
[2021-05-05 16:51] VITALS: BP 115/72
== END 2021-05-05 16:53 | disposition home or self-care (01) ==
LOC: EMS 12:57
DX: E11.65 Type 2 diabetes mellitus with hyperglycemia (principal); K74.60 Unspecified cirrhosis of liver; M79.10 Myalgia, unspecified site; F31.9 Bipolar disorder, unspecified; K21.9 Gastro-esophageal reflux disease without esophagitis; I10 Essential (primary) hypertension; F17.210 Nicotine dependence, cigarettes, uncomplicated; F19.90 Other psychoactive substance use, unspecified, uncomplicated; Z20.822 Contact with and (suspected) exposure to COVID-19
CPT/HCPCS: 71045; 80053; 82009; 82962; 85025; 87426; 87804; 96361; 96374; 96375; 99285; J1815; J1885; 82948

== ENCOUNTER 2021-05-17 12:17 | Emergency (ER) | payer OTHER ==
[~2021-05-17] VITALS: Ht 170.2 cm; Wt 64.2 kg
[2021-05-17 12:58] LABS: BASOPHILS % (AUTO) 0.4 % (0.0-2.0); EOSINOPHILS % (AUTO) 0.1 % (1.0-6.0); HEMATOCRIT 38.9 % (41-53); HEMOGLOBIN 13.2 g/dL (13.5-17.5); LYMPHOCYTES # (AUTO) 0.5 K/uL (1.0-4.8); LYMPHOCYTES % (AUTO) 10.3 % (22.0-44.0); MEAN CORPUSCULAR HEMOGLOBIN 34.4 pg (26.0-34.0); MEAN CORPUSCULAR HGB CONC 33.9 G/dL (31.0-37.0); MEAN CORPUSCULAR VOLUME 102 fL (80-100); MONOCYTES # (AUTO) 0.4 K/uL (0.1-1.0); MONOCYTES % (AUTO) 9.3 % (2.0-9.0); NEUTROPHILS # (AUTO) 3.9 K/uL (1.8-7.7); NEUTROPHILS % (AUTO) 79.9 % (40.0-70.0); PLATELET COUNT (AUTO) 249 K/uL (150-450); RED BLOOD CELL COUNT(AUTO) 3.83 MIL/uL (4.50-5.90); RED CELL DISTRIBUTION WIDTH 12.8 % (11.5-14.5)
[2021-05-17] MEDS ORDERED: SODIUM CHLORIDE 0.9% 1,000 ML IV ONE (13:00)
[2021-05-17 13:08] LABS: COVID AG,FIA SOURCE NASOPHARYNGEAL
[2021-05-17] MEDS ORDERED: ONDANSETRON HCL 4 MG/2 ML VIAL IVP ONE (13:15)
[2021-05-17] MEDS ORDERED: MORPHINE SULFATE 4 MG/ML SYRINGE IVP ONE (13:15)
[2021-05-17 13:22] LABS: ALANINE AMINOTRANSFERASE 24 U/L (12-78); ALBUMIN 2.6 g/dL (3.4-5.0); ALKALINE PHOSPHATASE 80 U/L (46-116); ANION GAP 11 mmol/L (8-16); ASPARTATE AMINOTRANSFERASE 14 U/L (15-37); BILIRUBIN,TOTAL 0.5 mg/dL (0.1-1.0); CALCIUM, TOTAL 8.9 mg/dL (8.8-10.5); CARBON DIOXIDE 24 mmol/L (22-29); CHLORIDE 93 mmol/L (98-107); CREATININE 0.58 mg/dL (0.60-1.30); GLOMERULAR FILTR. RATE CALC > 60 mL/min (>60); GLUCOSE,RANDOM 330 mg/dL (70-110); LIPASE 53 U/L (73-393); POTASSIUM 4.4 mmol/L (3.5-5.1); SODIUM SERUM 128 mmol/L (136-145); TOTAL PROTEIN, SERUM 7.5 g/dL (6.4-8.2); UREA NITROGEN, BLOOD 7 mg/dL (7-18)
[2021-05-17] MEDS ORDERED: KETOROLAC TROMETHAMINE 30 MG/ML VIAL IVP ONE (13:45)
[2021-05-17] MEDS ORDERED: ACETAMINOPHEN 325 MG TABLET PO ONE (13:45)
[2021-05-17 15:00] VITALS: BP 121/62
== END 2021-05-17 16:24 | disposition home or self-care (01) ==
LOC: EMS 12:20
DX: U07.1 COVID-19 (principal)
CPT/HCPCS: 36415; 71045; 80053; 82962; 83690; 84484; 85025; 87426; 93005; 96361; 96374; 96375; 99285; J1885; J2270; J2405; J7030

== ENCOUNTER 2021-09-19 11:08 | Emergency (ER) | payer OTHER ==
[~2021-09-19] VITALS: Ht 170.2 cm; Wt 45.5 kg
[2021-09-19 11:31] LABS: GLUCOSE,POINT OF CARE 514 MG/DL (70-110)
[2021-09-19] MEDS ORDERED: SODIUM CHLORIDE 0.9% 1,000 ML IV ONE (12:15)
[2021-09-19] MEDS: ACETAMINOPHEN 325 MG TABLET PO ONE ×2 (12:15→12:24)
[2021-09-19] MEDS ORDERED: INSULIN REGULAR, HUMAN 100 UNITS/ML IVP ONE (12:15)
[2021-09-19 12:35] LABS: BASOPHILS % (AUTO) 1.3 % (0.0-2.0); EOSINOPHILS % (AUTO) 0.4 % (1.0-6.0); HEMATOCRIT 38.9 % (41-53); HEMOGLOBIN 13.8 g/dL (13.5-17.5); LYMPHOCYTES # (AUTO) 0.8 K/uL (1.0-4.8); LYMPHOCYTES % (AUTO) 19.9 % (22.0-44.0); MEAN CORPUSCULAR HEMOGLOBIN 34.7 pg (26.0-34.0); MEAN CORPUSCULAR HGB CONC 35.4 G/dL (31.0-37.0); MEAN CORPUSCULAR VOLUME 98 fL (80-100); MONOCYTES # (AUTO) 0.4 K/uL (0.1-1.0); MONOCYTES % (AUTO) 10.4 % (2.0-9.0); NEUTROPHILS # (AUTO) 2.8 K/uL (1.8-7.7); PLATELET COUNT (AUTO) 250 K/uL (150-450); RED BLOOD CELL COUNT(AUTO) 3.97 MIL/uL (4.50-5.90); RED CELL DISTRIBUTION WIDTH 13.3 % (11.5-14.5)
[2021-09-19 12:46] VITALS: BP 121/87
[2021-09-19 12:49] LABS: ANION GAP 16 mmol/L (8-16); CALCIUM, TOTAL 9.5 mg/dL (8.8-10.5); CARBON DIOXIDE 20 mmol/L (22-29); CHLORIDE 93 mmol/L (98-107); CREATININE 0.66 mg/dL (0.60-1.30); GLOMERULAR FILTR. RATE CALC > 60 mL/min (>60); POTASSIUM 4.6 mmol/L (3.5-5.1); SODIUM SERUM 129 mmol/L (136-145); UREA NITROGEN, BLOOD 16 mg/dL (7-18)
[2021-09-19 12:52] LABS: GLUCOSE,RANDOM 440 mg/dL (70-110)
[2021-09-19] MEDS ORDERED: INSU100I26 SQ (12:58)
== END 2021-09-19 13:33 | disposition left against medical advice (07) ==
LOC: EMS 11:08
DX: E11.65 Type 2 diabetes mellitus with hyperglycemia (principal); F31.9 Bipolar disorder, unspecified; Z79.899 Other long term (current) drug therapy
CPT/HCPCS: 36415; 80048; 82962; 85025; 96361; 96374; 99283; J1815; J7030; 82948

== ENCOUNTER 2022-04-16 16:16 | Emergency (ER) | payer OTHER ==
[~2022-04-16] VITALS: Ht 170.2 cm; Wt 68.2 kg
[2022-04-16] MEDS ORDERED: KETOROLAC TROMETHAMINE 30 MG/ML VIAL IVP ONE ×2 (16:30→17:45)
[2022-04-16] MEDS ORDERED: SODIUM CHLORIDE 0.9% 1,000 ML IV ONE (16:30)
[2022-04-16] MEDS ORDERED: INSULIN REGULAR, HUMAN 100 UNITS/ML IVP ONE ×2 (16:30→22:45)
[2022-04-16 16:43] LABS: BASOPHILS % (AUTO) 0.6 % (0.0-2.0); EOSINOPHILS % (AUTO) 0.2 % (1.0-6.0); HEMATOCRIT 40.2 % (41-53); HEMOGLOBIN 13.6 g/dL (13.5-17.5); LYMPHOCYTES # (AUTO) 0.7 K/uL (1.0-4.8); LYMPHOCYTES % (AUTO) 14.8 % (22.0-44.0); MEAN CORPUSCULAR HEMOGLOBIN 35.2 pg (26.0-34.0); MEAN CORPUSCULAR HGB CONC 33.9 G/dL (31.0-37.0); MEAN CORPUSCULAR VOLUME 104 fL (80-100); MONOCYTES # (AUTO) 0.3 K/uL (0.1-1.0); MONOCYTES % (AUTO) 6.5 % (2.0-9.0); NEUTROPHILS # (AUTO) 3.9 K/uL (1.8-7.7); NEUTROPHILS % (AUTO) 77.9 % (40.0-70.0); PLATELET COUNT (AUTO) 311 K/uL (150-450); RED BLOOD CELL COUNT(AUTO) 3.88 MIL/uL (4.50-5.90); RED CELL DISTRIBUTION WIDTH 12.6 % (11.5-14.5)
[2022-04-16 16:59] LABS: ALANINE AMINOTRANSFERASE 36 U/L (12-78); ALKALINE PHOSPHATASE 103 U/L (46-116); ASPARTATE AMINOTRANSFERASE 16 U/L (15-37); BILIRUBIN,TOTAL 0.5 mg/dL (0.1-1.0); CALCIUM, TOTAL 9.7 mg/dL (8.8-10.5); CARBON DIOXIDE 25 mmol/L (22-29); CHLORIDE 87 mmol/L (98-107); CREATININE 0.96 mg/dL (0.60-1.30); LIPASE 116 U/L (73-393); POTASSIUM 4.3 mmol/L (3.5-5.1); TOTAL PROTEIN, SERUM 8.4 g/dL (6.4-8.2); UREA NITROGEN, BLOOD 9 mg/dL (7-18)
[2022-04-16 17:02] LABS: GLOMERULAR FILTR. RATE CALC > 60 mL/min (>60)
[2022-04-16 17:03] LABS: ANION GAP 13 mmol/L (8-16); GLUCOSE,RANDOM 667 mg/dL (70-110); SODIUM SERUM 125 mmol/L (136-145)
[2022-04-16 17:04] LABS: ACETONE,BLOOD NEGATIVE (NEGATIVE)
[2022-04-16] MEDS ORDERED: HYDROmorphone 2 MG/ML VIAL IVP ONE (17:45)
[2022-04-16] MEDS ORDERED: ONDANSETRON HCL 4 MG/2 ML VIAL IVP ONE ×2 (17:45→22:45)
[2022-04-16 22:26] LABS: GLUCOMETER DEV NAME(LOC) ERT.5; GLUCOSE,POINT OF CARE 354 MG/DL (70-110)
[2022-04-16] MEDS ORDERED: HYDR-4723 PO (22:39)
[2022-04-16] MEDS ORDERED: IBUP-1554 PO (22:39)
[2022-04-16] MEDS ORDERED: IBUPROFEN 600 MG TABLET PO ONE (22:45)
[2022-04-16] MEDS ORDERED: HYDROCODONE/ACETAMINOPHEN 5-325 MG TABLET PO ONE (22:45)
[2022-04-17 00:30] VITALS: BP 133/79
== END 2022-04-17 01:00 | disposition home or self-care (01) ==
LOC: EMS 16:17
DX: S82.034A Nondisplaced transverse fracture of right patella, initial encounter for closed fracture (principal); S20.211A Contusion of right front wall of thorax, initial encounter; E11.65 Type 2 diabetes mellitus with hyperglycemia; F31.9 Bipolar disorder, unspecified; F10.129 Alcohol abuse with intoxication, unspecified; K70.30 Alcoholic cirrhosis of liver without ascites; I85.01 Esophageal varices with bleeding; V29.40XA Motorcycle driver injured in collision with unspecified motor vehicles in traffic accident, initial encounter; Y93.89 Activity, other specified; Y92.89 Other specified places as the place of occurrence of the external cause; Y99.8 Other external cause status
CPT/HCPCS: 99285; 96374; 29505; 96375; 73700; 80053; 82009; 82962; 83690; 85025; 36415; 71101; 72170; 73552; 73562; 73630; 96376; G0480; J1170; J1885; J2405; J7030; J1815

== ENCOUNTER 2022-06-05 15:36 | Emergency (ER) | payer OTHER ==
[~2022-06-05] VITALS: Ht 170.2 cm; Wt 52.3 kg
[~2022-06-05 15:36] MED LIST changes: +HYDR-4723 PO; +IBUP-1554 PO
[2022-06-05] MEDS ORDERED: HYDROCODONE/ACETAMINOPHEN 5-325 MG TABLET PO ONE (18:15)
[2022-06-05 19:30] VITALS: BP 116/85
== END 2022-06-05 20:02 | disposition home or self-care (01) ==
LOC: EMS 15:36
DX: S82.001A Unspecified fracture of right patella, initial encounter for closed fracture (principal); E11.9 Type 2 diabetes mellitus without complications; F31.9 Bipolar disorder, unspecified; F17.210 Nicotine dependence, cigarettes, uncomplicated; I85.01 Esophageal varices with bleeding; X58.XXXA Exposure to other specified factors, initial encounter; Y93.89 Activity, other specified; Y92.89 Other specified places as the place of occurrence of the external cause; Y99.8 Other external cause status; Z85.46 Personal history of malignant neoplasm of prostate
CPT/HCPCS: 29505; 99283

== ENCOUNTER 2023-01-11 20:11 | Emergency (ER) | payer OTHER ==
[~2023-01-11] VITALS: Ht 167.6 cm; Wt 34.1 kg
[2023-01-11 21:11] LABS: EOSINOPHILS % (AUTO) 1.4 % (1.0-6.0); HEMATOCRIT 30.4 % (41-53); HEMOGLOBIN 10.3 g/dL (13.5-17.5); LYMPHOCYTES # (AUTO) 0.8 K/uL (1.0-4.8); MEAN CORPUSCULAR HEMOGLOBIN 32.4 pg (26.0-34.0); MEAN CORPUSCULAR HGB CONC 33.7 G/dL (31.0-37.0); MEAN CORPUSCULAR VOLUME 96 fL (80-100); MONOCYTES # (AUTO) 0.3 K/uL (0.1-1.0); MONOCYTES % (AUTO) 10.3 % (2.0-9.0); NEUTROPHILS # (AUTO) 1.9 K/uL (1.8-7.7); NEUTROPHILS % (AUTO) 61.3 % (40.0-70.0); PLATELET COUNT (AUTO) 412 K/uL (150-450); RED BLOOD CELL COUNT(AUTO) 3.16 MIL/uL (4.50-5.90); RED CELL DISTRIBUTION WIDTH 13.1 % (11.5-14.5)
[2023-01-11 21:31] LABS: ALBUMIN 3.1 g/dL (3.4-5.0); BILIRUBIN,TOTAL 0.2 mg/dL (0.1-1.0); CREATININE 1.21 mg/dL (0.60-1.30); POTASSIUM 4.1 mmol/L (3.5-5.1)
[2023-01-11] MEDS ORDERED: SODIUM CHLORIDE 0.9% 1,000 ML IV ONE (21:45)
[2023-01-11] MEDS ORDERED: INSULIN REGULAR, HUMAN 100 UNITS/ML IVP ONE (21:45)
[2023-01-11 21:49] VITALS: BP 123/87
[2023-01-11 21:58] LABS: HCO3,VENOUS BLOOD GAS 24.8 (21.0-28.0); PCO2,VENOUS BLOOD GAS 30 (40-45); PH,VENOUS BLOOD GAS 7.504 (7.360-7.410); SOURCE, BLOOD GAS VENOUS; TEMPERATURE, FAHRENHEIT, BG 98.8 FAHREN (96.0-98.6); TOTAL HEMOGLOBIN,VENOUS BGAS 11.7 (12.0-18.0)
[2023-01-11 21:58] LABS: APPEARANCE,URINE CLEAR (CLEAR); BILIRUBIN,URINE NEGATIVE (NEGATIVE); GLUCOSE, URINE (UA) >=1000 mg/dL (NEGATIVE); KETONES,URINE NEGATIVE (NEGATIVE); LEUKOCYTE ESTERASE ,URINE MODERATE (NEGATIVE); NITRATE,URINE NEGATIVE (NEGATIVE); OCCULT BLOOD,URINE MODERATE (NEGATIVE); PH,URINE 7.5 (5.0-8.0); PROTEIN,URINE NEGATIVE (NEGATIVE); UROBILINOGEN,URINE <=1.0 mg/dL (<=1.0)
[2023-01-11 22:00] LABS: SITE, BLOOD GAS OTHER
[2023-01-11 22:11] LABS: BACTERIA,URINE Few /HPF (None Seen)
== END 2023-01-12 00:57 | disposition left against medical advice (07) ==
LOC: EMS 20:13
DX: T83.9XXA Unspecified complication of genitourinary prosthetic device, implant and graft, initial encounter (principal); E11.65 Type 2 diabetes mellitus with hyperglycemia; E78.5 Hyperlipidemia, unspecified; K74.60 Unspecified cirrhosis of liver; F15.90 Other stimulant use, unspecified, uncomplicated; Z85.9 Personal history of malignant neoplasm, unspecified; Y92.89 Other specified places as the place of occurrence of the external cause
CPT/HCPCS: 99284; 96374; 96361; 80053; 81001; 85025; 36415; 87086; 82010; 87186; 82805; 82948; J1815; J7030

== ENCOUNTER 2023-02-01 17:36 | Inpatient (IN) | payer OTHER ==
[~2023-02-01] VITALS: Ht 167.6 cm; Wt 52.3 kg
[2023-02-01 18:02] LABS: GLUCOMETER DEV NAME(LOC) ERT.5
[2023-02-01] MEDS ORDERED: METF-446 PO (18:25)
[2023-02-01] MEDS ORDERED: SODIUM CHLORIDE 0.9% 1,000 ML IV ONE (18:30)
[2023-02-01] MEDS ORDERED: ONDANSETRON HCL 4 MG/2 ML VIAL IVP ONE ×2 (18:30→20:00)
[2023-02-01 18:56] LABS: BASOPHILS % (AUTO) 0.7 % (0.0-2.0); EOSINOPHILS % (AUTO) 0.9 % (1.0-6.0); HEMATOCRIT 31.2 % (41-53); HEMOGLOBIN 10.6 g/dL (13.5-17.5); LYMPHOCYTES # (AUTO) 0.8 K/uL (1.0-4.8); LYMPHOCYTES % (AUTO) 21.8 % (22.0-44.0); MEAN CORPUSCULAR HEMOGLOBIN 33.2 pg (26.0-34.0); MEAN CORPUSCULAR VOLUME 98 fL (80-100); MONOCYTES # (AUTO) 0.3 K/uL (0.1-1.0); MONOCYTES % (AUTO) 7.4 % (2.0-9.0); NEUTROPHILS # (AUTO) 2.4 K/uL (1.8-7.7); NEUTROPHILS % (AUTO) 69.2 % (40.0-70.0); PLATELET COUNT (AUTO) 347 K/uL (150-450); RED CELL DISTRIBUTION WIDTH 12.6 % (11.5-14.5)
[2023-02-01 19:08] LABS: ACETONE,BLOOD NEGATIVE (NEGATIVE)
[2023-02-01 19:10] LABS: ANION GAP 17 mmol/L (8-16); CALCIUM, TOTAL 8.8 mg/dL (8.8-10.5); CARBON DIOXIDE 22 mmol/L (22-29); CHLORIDE 88 mmol/L (98-107); CREATININE 1.38 mg/dL (0.60-1.30); GLOMERULAR FILTR. RATE CALC 52 mL/min (>60); POTASSIUM 3.9 mmol/L (3.5-5.1); SODIUM SERUM 127 mmol/L (136-145)
[2023-02-01 19:12] LABS: ALANINE AMINOTRANSFERASE 22 U/L (12-78); ALKALINE PHOSPHATASE 100 U/L (46-116); ASPARTATE AMINOTRANSFERASE 11 U/L (15-37); BILIRUBIN,TOTAL 0.2 mg/dL (0.1-1.0); LIPASE 188 U/L (73-393); TOTAL PROTEIN, SERUM 7.6 g/dL (6.4-8.2)
[2023-02-01 19:15] LABS: ABG BASE EXCESS -16.8 mmol/L (-2.0-3.0); ABG HCO3 11.5 mmol/L (22.0-26.0); ABG METHEMOGLOBIN 0.5 % (0.0-1.5); ABG OXYGEN CONTENT 3.7 mL/dL (15.0-23.0); ABG PH 7.339 (7.35-7.450); PO2, ARTERIAL BG 43.5 mmHg (79.0-87.0); SOURCE, BLOOD GAS ARTERIAL; TEMPERATURE, FAHRENHEIT, BG 98.7 FAHREN (96.0-98.6)
[2023-02-01 19:20] LABS: ABG OXYGEN SATURATION 73.4 % (95.0-98.0); ABG PCO2 17 mmHg (35-45); ABG TOTAL HEMOGLOBIN 3.5 G/dL (12.0-18.0); SITE, BLOOD GAS RT BRACHIAL
[2023-02-01 19:26] LABS: GLUCOSE,RANDOM 858 mg/dL (70-110)
[2023-02-01] MEDS ORDERED: MORPHINE SULFATE 4 MG/ML SYRINGE IVP ONE (20:00)
[2023-02-01 20:12] LABS: SITE, BLOOD GAS RT BRACHIAL
[2023-02-01 20:13] LABS: SOURCE, BLOOD GAS ARTERIAL; TEMPERATURE, FAHRENHEIT, BG 97.5 FAHREN (96.0-98.6)
[2023-02-01 20:14] LABS: ABG BASE EXCESS -0.2 mmol/L (-2.0-3.0); ABG CARBOXYHEMOGLOBIN 0.3 % (0.0-1.5); ABG HCO3 24.5 mmol/L (22.0-26.0); ABG PCO2 36 mmHg (35-45); ABG TOTAL HEMOGLOBIN 10.7 G/dL (12.0-18.0); PO2, ARTERIAL BG 103.5 mmHg (79.0-87.0)
[2023-02-01 20:15] LABS: ABG METHEMOGLOBIN 0.1 % (0.0-1.5); ABG OXYGEN CONTENT 14.8 mL/dL (15.0-23.0); ABG OXYGEN SATURATION 97.6 % (95.0-98.0); ABG OXYHEMOGLOBIN 97.2 % (94.0-100.0)
[2023-02-01] MEDS ORDERED: MORPHINE SULFATE 2 MG/ML SYRINGE IVP ONE (20:15)
[2023-02-01 20:16] LABS: ABG A-A DIFF O2 3.4 mmHg (10-20.0)
[2023-02-01 21:05] LABS: APPEARANCE,URINE CLEAR (CLEAR); BILIRUBIN,URINE NEGATIVE (NEGATIVE); GLUCOSE, URINE (UA) >=1000 mg/dL (NEGATIVE); KETONES,URINE NEGATIVE (NEGATIVE); LEUKOCYTE ESTERASE ,URINE LARGE (NEGATIVE); NITRATE,URINE NEGATIVE (NEGATIVE); OCCULT BLOOD,URINE NEGATIVE (NEGATIVE); PROTEIN,URINE NEGATIVE (NEGATIVE); UROBILINOGEN,URINE <=1.0 mg/dL (<=1.0)
[2023-02-01 21:18] LABS: RBC,URINE None Seen /HPF (0-2)
[2023-02-01 21:19] LABS: BACTERIA,URINE Rare /HPF (None Seen)
[2023-02-01 21:20] LABS: WBC,URINE 51-100 /HPF (0-5)
[2023-02-01] MEDS ORDERED: ONDANSETRON HCL 4 MG/2 ML VIAL IVP PRN ×2 (22:00→23:15)
[2023-02-01] MEDS ORDERED: 0.9% SODIUM CHLORIDE 10 ML SYRINGE IVP PRN (22:00)
[2023-02-01] MEDS ORDERED: ACETAMINOPHEN 325 MG TABLET PO PRN (22:00)
[2023-02-01 22:32] LABS: GLUCOMETER DEV NAME(LOC) ER.6
[2023-02-01] MEDS ORDERED: INSULIN GLARGINE,HUM.REC.ANLOG 100 UNITS/ML SQ ONE (23:00)
[2023-02-01] MEDS ORDERED: OxyCODONE HCL/ACETAMINOPHEN 5-325 MG TABLET PO PRN (23:00)
[2023-02-01] MEDS ORDERED: INSULIN LISPRO 100 UNITS/ML SQ ONE (23:15)
[2023-02-01] MEDS ORDERED: DEXTROSE 50%-WATER 25 GM/50 ML SYRINGE IVP PRN (23:30)
[2023-02-01] MEDS: INSULIN LISPRO 100 UNITS/ML SQ PRN (23:43)
[2023-02-01] MEDS: SODIUM CHLORIDE 0.9% 1,000 ML IV SCH (23:44)
[2023-02-02 00:18] LABS: GLUCOMETER DEV NAME(LOC) ER.6
[2023-02-02 00:41] VITALS: BP 130/85; PULSE 74; RESP 18; TEMP 97.8
[2023-02-02] MEDS: SODIUM CHLORIDE 0.9% 1,000 ML IV SCH (00:46)
[2023-02-02] MEDS: MORPHINE SULFATE 2 MG/ML SYRINGE IVP PRN ×2 (00:48→06:47)
[2023-02-02 01:07] LABS: GLUCOMETER DEV NAME(LOC) 6N.1
[2023-02-02 04:54] VITALS: BP 119/79; PULSE 84; RESP 18; TEMP 97.6
[2023-02-02] MEDS: INSULIN LISPRO 100 UNITS/ML SQ PRN (06:15)
[2023-02-02 07:06] LABS: BASOPHILS % (AUTO) 0.6 % (0.0-2.0); EOSINOPHILS % (AUTO) 1.6 % (1.0-6.0); HEMATOCRIT 32.8 % (41-53); HEMOGLOBIN 11.5 g/dL (13.5-17.5); LYMPHOCYTES # (AUTO) 1.3 K/uL (1.0-4.8); LYMPHOCYTES % (AUTO) 22.3 % (22.0-44.0); MEAN CORPUSCULAR HEMOGLOBIN 33.2 pg (26.0-34.0); MEAN CORPUSCULAR VOLUME 95 fL (80-100); MONOCYTES # (AUTO) 0.5 K/uL (0.1-1.0); MONOCYTES % (AUTO) 8.6 % (2.0-9.0); NEUTROPHILS # (AUTO) 3.9 K/uL (1.8-7.7); NEUTROPHILS % (AUTO) 66.9 % (40.0-70.0); PLATELET COUNT (AUTO) 359 K/uL (150-450); RED BLOOD CELL COUNT(AUTO) 3.46 MIL/uL (4.50-5.90)
[2023-02-02 07:26] LABS: ALANINE AMINOTRANSFERASE 16 U/L (12-78); ALBUMIN 2.9 g/dL (3.4-5.0); ALKALINE PHOSPHATASE 99 U/L (46-116); ANION GAP 9 mmol/L (8-16); ASPARTATE AMINOTRANSFERASE 9 U/L (15-37); BILIRUBIN,TOTAL 0.3 mg/dL (0.1-1.0); CARBON DIOXIDE 28 mmol/L (22-29); CHLORIDE 99 mmol/L (98-107); CREATININE 0.99 mg/dL (0.60-1.30); GLOMERULAR FILTR. RATE CALC > 60 mL/min (>60); GLUCOSE,RANDOM 169 mg/dL (70-110); POTASSIUM 3.6 mmol/L (3.5-5.1); SODIUM SERUM 136 mmol/L (136-145); TOTAL PROTEIN, SERUM 7.6 g/dL (6.4-8.2)
[2023-02-02 08:10] VITALS: BP 124/81; PULSE 77; RESP 18; TEMP 97.7
[2023-02-03 07:57] LABS: GLUCOMETER DEV NAME(LOC) 6S.2
== END 2023-02-02 08:00 | disposition left against medical advice (07) | DRG 420 ==
LOC: EMS 17:37 → 6S 21:47
PROVIDERS: ADMIT Hospitalist; ATTEND Hospitalist
DX: E11.65 Type 2 diabetes mellitus with hyperglycemia (principal); E43 Unspecified severe protein-calorie malnutrition; C61 Malignant neoplasm of prostate; K74.60 Unspecified cirrhosis of liver; K76.9 Liver disease, unspecified; Z53.21 Procedure and treatment not carried out due to patient leaving prior to being seen by health care provider; Z79.84 Long term (current) use of oral hypoglycemic drugs; Z79.4 Long term (current) use of insulin; Z87.440 Personal history of urinary (tract) infections; Z79.899 Other long term (current) drug therapy; Z68.1 Body mass index [BMI] 19.9 or less, adult
CPT/HCPCS: 36600; 80053; 81001; 82009; 82805; 82947; 82948; 82962; 83690; 84484; 85025; 87086; 87186; 93005; 99285; J1815; J2270; J2405; J7030

== ENCOUNTER 2023-02-14 01:11 | Inpatient (IN) | payer OTHER ==
[~2023-02-14] VITALS: Ht 167.6 cm; Wt 54.5 kg
[~2023-02-14 01:11] MED LIST changes: +METF-446 PO
[2023-02-14] MEDS ORDERED: INSULIN REGULAR, HUMAN 100 UNITS/ML IVP ONE (02:30)
[2023-02-14] MEDS ORDERED: SODIUM CHLORIDE 0.9% 1,000 ML IV ONE ×2 (02:30→03:30)
[2023-02-14 02:47] LABS: BASOPHILS % (AUTO) 1.2 % (0.0-2.0); EOSINOPHILS % (AUTO) 0.8 % (1.0-6.0); HEMATOCRIT 31.9 % (41-53); HEMOGLOBIN 10.7 g/dL (13.5-17.5); LYMPHOCYTES # (AUTO) 0.8 K/uL (1.0-4.8); LYMPHOCYTES % (AUTO) 25.6 % (22.0-44.0); MEAN CORPUSCULAR HEMOGLOBIN 32.1 pg (26.0-34.0); MEAN CORPUSCULAR HGB CONC 33.4 G/dL (31.0-37.0); MEAN CORPUSCULAR VOLUME 96 fL (80-100); MONOCYTES # (AUTO) 0.3 K/uL (0.1-1.0); MONOCYTES % (AUTO) 10.8 % (2.0-9.0); NEUTROPHILS # (AUTO) 1.9 K/uL (1.8-7.7); NEUTROPHILS % (AUTO) 61.6 % (40.0-70.0); PLATELET COUNT (AUTO) 369 K/uL (150-450); RED BLOOD CELL COUNT(AUTO) 3.32 MIL/uL (4.50-5.90); RED CELL DISTRIBUTION WIDTH 12.8 % (11.5-14.5)
[2023-02-14 03:02] LABS: ALANINE AMINOTRANSFERASE 69 U/L (12-78); ALBUMIN 3.1 g/dL (3.4-5.0); ALKALINE PHOSPHATASE 163 U/L (46-116); ANION GAP 8 mmol/L (8-16); ASPARTATE AMINOTRANSFERASE 82 U/L (15-37); BILIRUBIN,TOTAL 0.5 mg/dL (0.1-1.0); CALCIUM, TOTAL 9.1 mg/dL (8.8-10.5); CARBON DIOXIDE 26 mmol/L (22-29); CHLORIDE 86 mmol/L (98-107); CREATININE 1.44 mg/dL (0.60-1.30); GLOMERULAR FILTR. RATE CALC 49 mL/min (>60); POTASSIUM 4.1 mmol/L (3.5-5.1); TOTAL PROTEIN, SERUM 7.7 g/dL (6.4-8.2)
[2023-02-14 03:09] LABS: SODIUM SERUM 120 mmol/L (136-145)
[2023-02-14 03:10] LABS: APPEARANCE,URINE CLEAR (CLEAR); BILIRUBIN,URINE NEGATIVE (NEGATIVE); GLUCOSE, URINE (UA) >=1000 mg/dL (NEGATIVE); KETONES,URINE NEGATIVE (NEGATIVE); LEUKOCYTE ESTERASE ,URINE MODERATE (NEGATIVE); NITRATE,URINE NEGATIVE (NEGATIVE); OCCULT BLOOD,URINE NEGATIVE (NEGATIVE); PH,URINE 5.5 (5.0-8.0); PROTEIN,URINE NEGATIVE (NEGATIVE); SPECIFIC GRAVITIY, URINE 1.021 (1.003-1.030); UROBILINOGEN,URINE <=1.0 mg/dL (<=1.0)
[2023-02-14 03:10] LABS: GLUCOSE,RANDOM 851 mg/dL (70-110)
[2023-02-14 03:11] LABS: ACETONE,BLOOD NEGATIVE (NEGATIVE)
[2023-02-14 03:17] LABS: AMPHET/METH SCREEN,URINE POSITIVE (NEGATIVE); BARBITURATE SCREEN, URINE NEGATIVE (NEGATIVE); BENZODIAZEPINES SCREEN,URINE NEGATIVE (NEGATIVE); CANNABINOID SCREEN,URINE NEGATIVE (NEGATIVE); COCAINE SCREEN,URINE NEGATIVE (NEGATIVE); METHADONE SCREEN, URINE NEGATIVE (NEGATIVE); OPIATE SCREEN,URINE NEGATIVE (NEGATIVE); PHENCYCLIDINE SCREEN,URINE NEGATIVE (NEGATIVE)
[2023-02-14 03:20] LABS: BACTERIA,URINE Rare /HPF (None Seen); RBC,URINE None Seen /HPF (0-2); SQUAMOUS EPITHELIAL CELL,UR None Seen /LPF (None Seen); WBC,URINE 26-50 /HPF (0-5)
[2023-02-14] MEDS ORDERED: INSULIN REGULAR, HUMAN 100 UNITS/ML IVP PRN (03:30)
[2023-02-14] MEDS ORDERED: SODIUM CHLORIDE 0.45% 1,000 ML IV PRN (03:30)
[2023-02-14] MEDS ORDERED: SODIUM CHLORIDE 0.9% 1,000 ML IV SCH (03:30)
[2023-02-14] MEDS ORDERED: ACETAMINOPHEN 325 MG TABLET PO PRN (03:30)
[2023-02-14] MEDS ORDERED: DEXTROSE 5%-0.45% SODIUM CHL 1,000 ML IV PRN (03:30)
[2023-02-14] MEDS ORDERED: ONDANSETRON HCL 4 MG/2 ML VIAL IVP PRN (03:30)
[2023-02-14] MEDS ORDERED: INSULIN REGULAR, HUMAN 100 UNITS in SODIUM CHLORIDE 0.9% 99 ML IV PRN ×2 (03:30)
[2023-02-14] MEDS ORDERED: POTASSIUM CHL 20 MEQ/0.45% NS 1,000 ML IV PRN (03:30)
[2023-02-14] MEDS ORDERED: DEXTROSE 50%-WATER 25 GM/50 ML SYRINGE IVP PRN ×2 (03:30→08:00)
[2023-02-14] MEDS ORDERED: POTASSIUM CHLORIDE 40 MEQ in SODIUM CHLORIDE 0.45% 1,000 ML IV PRN (03:30)
[2023-02-14] MEDS ORDERED: ONDANSETRON HCL 4 MG/2 ML VIAL IVP ONE (03:30)
[2023-02-14] MEDS ORDERED: HYDROmorphone HCL 2 MG/ML SYRINGE IVP ONE (03:30)
[2023-02-14] MEDS ORDERED: CefTRIAXone 1 GM/DEXTROSE 50 ML IV ONE (03:30)
[2023-02-14 04:01] LABS: GLUCOMETER DEV NAME(LOC) ER.6
[2023-02-14] MEDS: PIPERACILLIN/TAZO 3.375 GM/D5W 50 ML IV SCH ×3 (04:33→16:10)
[2023-02-14 05:31] LABS: GLUCOMETER DEV NAME(LOC) ERT.5
[2023-02-14 07:06] LABS: GLUCOMETER DEV NAME(LOC) ERT.5
[2023-02-14 07:51] LABS: GLUCOMETER DEV NAME(LOC) ER.6
[2023-02-14] MEDS: HEPARIN SODIUM,PORCINE 5,000 UNITS/ML VIAL SQ SCH ×3 (07:55→16:09)
[2023-02-14] MEDS: OxyCODONE HCL/ACETAMINOPHEN 5-325 MG TABLET PO PRN ×2 (08:46→17:03)
[2023-02-14] MEDS ORDERED: VITAMIN B COMPLEX/FOLIC ACID 1 TABLET PO SCH (09:00)
[2023-02-14] MEDS: CLOTRIMAZOLE 1% 10 ML SOLUTION TP SCH (09:00)
[2023-02-14] MEDS ORDERED: DOCUSATE SODIUM 100 MG CAPSULE PO SCH (09:00)
[2023-02-14] MEDS: INSULIN LISPRO 100 UNITS/ML SQ PRN ×3 (09:46→16:29)
[2023-02-14 09:56] LABS: GLUCOMETER DEV NAME(LOC) ER.6
[2023-02-14 10:48] VITALS: BP 107/68; PULSE 69; RESP 18; TEMP 98.1
[2023-02-14 12:37] LABS: GLUCOMETER DEV NAME(LOC) 5S.2C
[2023-02-14 17:06] LABS: GLUCOMETER DEV NAME(LOC) 5S.2C
[2023-02-14] MEDS ORDERED: INSULIN GLARGINE,HUM.REC.ANLOG 100 UNITS/ML SQ SCH (21:00)
[2023-02-14] MEDS ORDERED: TAMSULOSIN HCL 0.4 MG CAPSULE PO SCH (21:00)
[2023-02-15] MEDS ORDERED: CefTRIAXone 1 GM/DEXTROSE 50 ML IV SCH (04:00)
== END 2023-02-14 19:46 | disposition left against medical advice (07) | DRG 466 ==
LOC: EMS 01:12 → ICUN 04:00 → 5S 09:19
PROVIDERS: ADMIT Internal Medicine; ATTEND Internal Medicine
PROC: 0T9B70Z Drainage of Bladder with Drainage Device, Via Natural or Artificial Opening (ICD-10-PCS; principal; 2023-02-14)
DX: T83.518A Infection and inflammatory reaction due to other urinary catheter, initial encounter (principal); A41.9 Sepsis, unspecified organism; E43 Unspecified severe protein-calorie malnutrition; D84.89 Other immunodeficiencies; K74.60 Unspecified cirrhosis of liver; E86.0 Dehydration; E11.65 Type 2 diabetes mellitus with hyperglycemia; F15.10 Other stimulant abuse, uncomplicated; K76.9 Liver disease, unspecified; N39.0 Urinary tract infection, site not specified; R30.0 Dysuria; R33.8 Other retention of urine; Z53.29 Procedure and treatment not carried out because of patient's decision for other reasons; K13.0 Diseases of lips; Y84.6 Urinary catheterization as the cause of abnormal reaction of the patient, or of later complication, without mention of misadventure at the time of the procedure; Y92.89 Other specified places as the place of occurrence of the external cause; Z79.4 Long term (current) use of insulin; Z85.46 Personal history of malignant neoplasm of prostate; Z87.891 Personal history of nicotine dependence; Z91.199 Patient's noncompliance with other medical treatment and regimen due to unspecified reason; Z68.1 Body mass index [BMI] 19.9 or less, adult; Z79.899 Other long term (current) drug therapy; Z71.51 Drug abuse counseling and surveillance of drug abuser
CPT/HCPCS: 71045; 80053; 80307; 81001; 82009; 82962; 83930; 84145; 84484; 85025; 87040; 87086; 87186; 93005; 99285; G0480; J0696; J1170; J1644; J1815; J2405; J2543; J7030; J7050; 36415-L1; 36415-TC

== ENCOUNTER 2023-03-01 22:18 | Emergency (ER) | payer OTHER | END 2023-03-01 23:14 | disposition left against medical advice (07) | LOC: EMS 22:24 | DX: Z53.21 Procedure and treatment not carried out due to patient leaving prior to being seen by health care provider (principal) ==

== ENCOUNTER 2023-03-08 22:29 | Emergency (ER) | payer OTHER ==
[~2023-03-08] VITALS: Ht 167.6 cm; Wt 47.7 kg
[2023-03-08 22:57] VITALS: TEMP 98.5
[2023-03-09 00:30] VITALS: BP 111/63; PULSE 98; RESP 15
[2023-03-09] MEDS ORDERED: ACETAMINOPHEN 325 MG TABLET PO ONE (01:00)
== END 2023-03-09 01:31 | disposition left against medical advice (07) ==
LOC: EMS 22:30
DX: M53.3 Sacrococcygeal disorders, not elsewhere classified (principal); E11.9 Type 2 diabetes mellitus without complications; Z79.84 Long term (current) use of oral hypoglycemic drugs; Z79.899 Other long term (current) drug therapy
CPT/HCPCS: 99282; Z7502; Z7610

== ENCOUNTER 2023-03-18 18:51 | Emergency (ER) | payer OTHER ==
[~2023-03-18] VITALS: Ht 170.2 cm; Wt 70.0 kg
[2023-03-18 20:03] VITALS: TEMP 98
[2023-03-18] MEDS ORDERED: INSULIN REGULAR, HUMAN 100 UNITS/ML IVP ONE (22:30)
[2023-03-18 23:54] LABS: LACTIC ACID 2.1 mmol/L (0.4-2.0)
[2023-03-18 23:57] LABS: HEMATOCRIT 40.5 % (41-53); HEMOGLOBIN 13.8 g/dL (13.5-17.5); MEAN CORPUSCULAR HEMOGLOBIN 33.2 pg (26.0-34.0); MEAN CORPUSCULAR VOLUME 98 fL (80-100); PLATELET COUNT (AUTO) 323 K/uL (150-450); RED BLOOD CELL COUNT(AUTO) 4.14 MIL/uL (4.50-5.90); RED CELL DISTRIBUTION WIDTH 13.5 % (11.5-14.5)
[2023-03-18 23:58] LABS: ALANINE AMINOTRANSFERASE 38 U/L (12-78); ALBUMIN 3.4 g/dL (3.4-5.0); ALKALINE PHOSPHATASE 162 U/L (46-116); ANION GAP 13 mmol/L (8-16); ASPARTATE AMINOTRANSFERASE 15 U/L (15-37); BILIRUBIN,TOTAL 0.7 mg/dL (0.1-1.0); CARBON DIOXIDE 23 mmol/L (22-29); CHLORIDE 93 mmol/L (98-107); CREATININE 1.25 mg/dL (0.60-1.30); GLOMERULAR FILTR. RATE CALC 58 mL/min (>60); LIPASE 46 U/L (16-77); POTASSIUM 4.5 mmol/L (3.5-5.1); SODIUM SERUM 129 mmol/L (136-145); TOTAL PROTEIN, SERUM 8.5 g/dL (6.4-8.2)
[2023-03-19 00:05] LABS: GLUCOSE,RANDOM 423 mg/dL (70-110)
[2023-03-19 00:24] LABS: BAND NEUTROPHILS % (MANUAL) 5 % (0-5); LYMPHOCYTES % (MANUAL) 9 % (22-44); MONOCYTES % (MANUAL) 2 % (2-9); SEGMENTED NEUTROPHILS % 84 % (40-70)
[2023-03-19 03:30] VITALS: BP 129/69; PULSE 77; RESP 16
[2023-03-19 03:40] LABS: APPEARANCE,URINE CLEAR (CLEAR); BILIRUBIN,URINE NEGATIVE (NEGATIVE); GLUCOSE, URINE (UA) >=1000 mg/dL (NEGATIVE); KETONES,URINE NEGATIVE (NEGATIVE); LEUKOCYTE ESTERASE ,URINE LARGE (NEGATIVE); NITRATE,URINE NEGATIVE (NEGATIVE); OCCULT BLOOD,URINE TRACE (NEGATIVE); PH,URINE 5.5 (5.0-8.0); PROTEIN,URINE TRACE mg/dL (NEGATIVE); SPECIFIC GRAVITIY, URINE 1.018 (1.003-1.030); UROBILINOGEN,URINE <=1.0 mg/dL (<=1.0)
[2023-03-19 03:46] LABS: AMPHET/METH SCREEN,URINE POSITIVE (NEGATIVE); BARBITURATE SCREEN, URINE NEGATIVE (NEGATIVE); BENZODIAZEPINES SCREEN,URINE NEGATIVE (NEGATIVE); CANNABINOID SCREEN,URINE NEGATIVE (NEGATIVE); COCAINE SCREEN,URINE NEGATIVE (NEGATIVE); METHADONE SCREEN, URINE NEGATIVE (NEGATIVE); OPIATE SCREEN,URINE NEGATIVE (NEGATIVE); PHENCYCLIDINE SCREEN,URINE NEGATIVE (NEGATIVE)
[2023-03-19 03:47] LABS: BACTERIA,URINE Few /HPF (None Seen); RBC,URINE 0-2 /HPF (0-2); SQUAMOUS EPITHELIAL CELL,UR Few /LPF (None Seen); YEAST,URINE Moderate /HPF (None Seen)
== END 2023-03-19 05:28 | disposition left against medical advice (07) ==
LOC: EDUNIT# 18:51 → EMS 18:55
DX: E11.65 Type 2 diabetes mellitus with hyperglycemia (principal); R55 Syncope and collapse; F15.10 Other stimulant abuse, uncomplicated; M19.90 Unspecified osteoarthritis, unspecified site; F31.9 Bipolar disorder, unspecified; N40.0 Benign prostatic hyperplasia without lower urinary tract symptoms; K76.0 Fatty (change of) liver, not elsewhere classified; Z98.890 Other specified postprocedural states
CPT/HCPCS: 99285; 71045; 80053; 81001; 82009; 83605; 83690; 84484; 85007; 85027; 87086; 87186; 93005; 80307; 96374; 82962; 36415; J1815; G0480

== ENCOUNTER 2023-04-26 22:05 | Emergency (ER) | payer OTHER ==
[~2023-04-26] VITALS: Ht 167.6 cm; Wt 40.9 kg
[2023-04-26 22:13] VITALS: TEMP 98.5
[2023-04-26 23:12] LABS: BASOPHILS % (AUTO) 0.5 % (0.0-2.0); EOSINOPHILS % (AUTO) 0.4 % (1.0-6.0); HEMATOCRIT 34.6 % (41-53); HEMOGLOBIN 12.2 g/dL (13.5-17.5); LYMPHOCYTES # (AUTO) 0.9 K/uL (1.0-4.8); LYMPHOCYTES % (AUTO) 21.2 % (22.0-44.0); MEAN CORPUSCULAR HEMOGLOBIN 34.7 pg (26.0-34.0); MEAN CORPUSCULAR HGB CONC 35.4 G/dL (31.0-37.0); MEAN CORPUSCULAR VOLUME 98 fL (80-100); MONOCYTES # (AUTO) 0.3 K/uL (0.1-1.0); MONOCYTES % (AUTO) 6.7 % (2.0-9.0); NEUTROPHILS % (AUTO) 71.2 % (40.0-70.0); PLATELET COUNT (AUTO) 418 K/uL (150-450); RED BLOOD CELL COUNT(AUTO) 3.53 MIL/uL (4.50-5.90); RED CELL DISTRIBUTION WIDTH 13.3 % (11.5-14.5); WHITE BLOOD COUNT (AUTO) 4.2 K/uL (4.5-11.0)
[2023-04-26 23:26] LABS: ANION GAP 11 mmol/L (8-16); CALCIUM, TOTAL 9.7 mg/dL (8.8-10.5); CARBON DIOXIDE 28 mmol/L (22-29); CHLORIDE 92 mmol/L (98-107); CREATININE 1.15 mg/dL (0.60-1.30); GLOMERULAR FILTR. RATE CALC > 60 mL/min (>60); POTASSIUM 4.1 mmol/L (3.5-5.1); SODIUM SERUM 131 mmol/L (136-145); UREA NITROGEN, BLOOD 17 mg/dL (7-18)
[2023-04-26 23:28] LABS: GLUCOSE,RANDOM 559 mg/dL (70-110)
[2023-04-27 00:20] VITALS: BP 123/76; PULSE 86; RESP 16
[2023-04-27] MEDS ORDERED: SODIUM CHLORIDE 0.9% 1,000 ML IV ONE (00:30)
[2023-04-27] MEDS ORDERED: INSULIN REGULAR, HUMAN 100 UNITS/ML IVP ONE (00:30)
[2023-04-27] MEDS ORDERED: TraMADol HCL 50 MG TABLET PO ONE (00:30)
== END 2023-04-27 00:58 | disposition left against medical advice (07) ==
LOC: EMS 22:06
DX: R73.9 Hyperglycemia, unspecified (principal); Z53.21 Procedure and treatment not carried out due to patient leaving prior to being seen by health care provider
CPT/HCPCS: 99281; 80048; 85025; 36415; 93005; J1815; J7030

== ENCOUNTER 2023-05-29 23:05 | Emergency (ER) | payer OTHER ==
[~2023-05-29] VITALS: Ht 154.9 cm; Wt 65.0 kg
[2023-05-29 23:25] VITALS: BP 138/90; PULSE 88; RESP 18; TEMP 98.2
[2023-05-29 23:41] LABS: GLUCOMETER DEV NAME(LOC) ER.6; GLUCOSE,POINT OF CARE > 600 MG/DL (70-110)
[2023-05-30] MEDS ORDERED: HYDROCODONE/ACETAMINOPHEN 5-325 MG TABLET PO ONE
[2023-05-30 00:02] LABS: BASOPHILS % (AUTO) 0.7 % (0.0-2.0); EOSINOPHILS % (AUTO) 0.3 % (1.0-6.0); HEMATOCRIT 32.5 % (41-53); HEMOGLOBIN 10.9 g/dL (13.5-17.5); LYMPHOCYTES # (AUTO) 0.6 K/uL (1.0-4.8); LYMPHOCYTES % (AUTO) 15.9 % (22.0-44.0); MEAN CORPUSCULAR HEMOGLOBIN 33.8 pg (26.0-34.0); MEAN CORPUSCULAR HGB CONC 33.5 G/dL (31.0-37.0); MEAN CORPUSCULAR VOLUME 101 fL (80-100); MONOCYTES # (AUTO) 0.3 K/uL (0.1-1.0); MONOCYTES % (AUTO) 6.6 % (2.0-9.0); NEUTROPHILS % (AUTO) 76.5 % (40.0-70.0); PLATELET COUNT (AUTO) 363 K/uL (150-450); RED BLOOD CELL COUNT(AUTO) 3.22 MIL/uL (4.50-5.90); RED CELL DISTRIBUTION WIDTH 12.8 % (11.5-14.5); WHITE BLOOD COUNT (AUTO) 3.9 K/uL (4.5-11.0)
[2023-05-30 00:19] LABS: TROPONIN I-HIGH SENSITIVITY 11 ng/L (<76)
[2023-05-30 00:21] LABS: ACETONE,BLOOD NEGATIVE (NEGATIVE); ANION GAP 11 mmol/L (8-16); CARBON DIOXIDE 25 mmol/L (22-29); CHLORIDE 92 mmol/L (98-107); CREATININE 1.42 mg/dL (0.60-1.30); POTASSIUM 3.8 mmol/L (3.5-5.1); SODIUM SERUM 128 mmol/L (136-145); UREA NITROGEN, BLOOD 21 mg/dL (7-18)
[2023-05-30 00:22] LABS: CALCIUM, TOTAL 9.1 mg/dL (8.8-10.5); GLOMERULAR FILTR. RATE CALC 50 mL/min (>60)
[2023-05-30 00:23] LABS: ALANINE AMINOTRANSFERASE 160 U/L (12-78); ALKALINE PHOSPHATASE 657 U/L (46-116); ASPARTATE AMINOTRANSFERASE 136 U/L (15-37); BILIRUBIN,TOTAL 0.4 mg/dL (0.1-1.0); TOTAL PROTEIN, SERUM 8.5 g/dL (6.4-8.2)
[2023-05-30 00:37] LABS: GLUCOSE,RANDOM 835 mg/dL (70-110)
[2023-05-30] MEDS ORDERED: INSULIN REGULAR, HUMAN 100 UNITS/ML IVP ONE (00:45)
[2023-05-30] MEDS ORDERED: SODIUM CHLORIDE 0.9% 1,000 ML IV ONE (00:45)
[2023-05-30 00:48] LABS: APPEARANCE,URINE CLEAR (CLEAR); BILIRUBIN,URINE NEGATIVE (NEGATIVE); COLOR,URINE COLORLESS (YELLOW); GLUCOSE, URINE (UA) >=1000 mg/dL (NEGATIVE); KETONES,URINE NEGATIVE (NEGATIVE); LEUKOCYTE ESTERASE ,URINE LARGE (NEGATIVE); NITRATE,URINE NEGATIVE (NEGATIVE); OCCULT BLOOD,URINE SMALL (NEGATIVE); PH,URINE 5.5 (5.0-8.0); PROTEIN,URINE NEGATIVE (NEGATIVE); SPECIFIC GRAVITIY, URINE 1.016 (1.003-1.030); UROBILINOGEN,URINE <=1.0 mg/dL (<=1.0)
[2023-05-30 00:57] LABS: BACTERIA,URINE None Seen /HPF (None Seen); RBC,URINE 0-2 /HPF (0-2); SQUAMOUS EPITHELIAL CELL,UR None Seen /LPF (None Seen); YEAST,URINE Moderate /HPF (None Seen)
[2023-05-30 04:41] LABS: GLUCOMETER DEV NAME(LOC) ERT.5; GLUCOSE,POINT OF CARE 466 MG/DL (70-110)
== END 2023-05-30 02:33 | disposition left against medical advice (07) ==
LOC: EMS 23:07
DX: R07.81 Pleurodynia (principal); E11.9 Type 2 diabetes mellitus without complications; F17.210 Nicotine dependence, cigarettes, uncomplicated
CPT/HCPCS: 99285; 80053; 81001; 82009; 82962; 84484; 85025; 36415; 87086; 87186; 93005; 74176; 96374; 96361; J1815; J7030

== ENCOUNTER 2023-07-13 06:11 | Emergency (ER) | payer OTHER ==
[~2023-07-13] VITALS: Ht 167.6 cm; Wt 45.4 kg
[~2023-07-13 06:11] MED LIST changes: +CEPH-558 PO; -HYDR-4723 PO; -IBUP-1554 PO
[2023-07-13 06:24] VITALS: BP 145/86; PULSE 94; RESP 18; TEMP 97.8
[2023-07-13 06:36] LABS: GLUCOMETER DEV NAME(LOC) ERT.5; GLUCOSE,POINT OF CARE 553 MG/DL (70-110)
== END 2023-07-13 08:07 | disposition left against medical advice (07) ==
LOC: EMS 06:12
DX: R73.9 Hyperglycemia, unspecified (principal); Z53.21 Procedure and treatment not carried out due to patient leaving prior to being seen by health care provider
CPT/HCPCS: 82962; 99281

== ENCOUNTER 2023-07-18 19:16 | Emergency (ER) | payer OTHER ==
[~2023-07-18] VITALS: Ht 167.6 cm; Wt 47.7 kg
[2023-07-18 19:56] VITALS: TEMP 99.7
[2023-07-18] MEDS ORDERED: SODIUM CHLORIDE 0.9% 1,000 ML IV ONE ×2 (20:45→21:30)
[2023-07-18 21:07] LABS: BASOPHILS % (AUTO) 0.7 % (0.0-2.0); EOSINOPHILS % (AUTO) 0.2 % (1.0-6.0); HEMATOCRIT 22.3 % (41-53); HEMOGLOBIN 7.9 g/dL (13.5-17.5); LYMPHOCYTES # (AUTO) 0.5 K/uL (1.0-4.8); LYMPHOCYTES % (AUTO) 10.2 % (22.0-44.0); MEAN CORPUSCULAR HEMOGLOBIN 35.3 pg (26.0-34.0); MEAN CORPUSCULAR HGB CONC 35.3 G/dL (31.0-37.0); MEAN CORPUSCULAR VOLUME 100 fL (80-100); MONOCYTES # (AUTO) 0.4 K/uL (0.1-1.0); MONOCYTES % (AUTO) 7.3 % (2.0-9.0); NEUTROPHILS # (AUTO) 3.9 K/uL (1.8-7.7); NEUTROPHILS % (AUTO) 81.6 % (40.0-70.0); PLATELET COUNT (AUTO) 374 K/uL (150-450); RED BLOOD CELL COUNT(AUTO) 2.24 MIL/uL (4.50-5.90); RED CELL DISTRIBUTION WIDTH 13.9 % (11.5-14.5); WHITE BLOOD COUNT (AUTO) 4.8 K/uL (4.5-11.0)
[2023-07-18 21:26] LABS: ALBUMIN 2.7 g/dL (3.4-5.0); BILIRUBIN,TOTAL 0.3 mg/dL (0.1-1.0); CALCIUM, TOTAL 8.6 mg/dL (8.8-10.5); CREATININE 1.26 mg/dL (0.60-1.30); TOTAL PROTEIN, SERUM 7.5 g/dL (6.4-8.2); TROPONIN I-HIGH SENSITIVITY 15 ng/L (<76)
[2023-07-18] MEDS ORDERED: INSULIN REGULAR, HUMAN 100 UNITS/ML IVP ONE (21:30)
[2023-07-18] MEDS ORDERED: MORPHINE SULFATE 2 MG/ML SYRINGE IVP ONE (21:45)
[2023-07-18] MEDS ORDERED: BACITRACIN 0.9 GM PACKET OINTMENT TP ONE (22:15)
[2023-07-18] MEDS ORDERED: ACETAMINOPHEN 325 MG TABLET PO ONE (23:00)
[2023-07-18 23:03] VITALS: BP 136/79; PULSE 94; RESP 16
[2023-07-18 23:21] LABS: GLUCOMETER DEV NAME(LOC) ERT.5; GLUCOSE,POINT OF CARE 439 MG/DL (70-110)
[2023-07-18] MEDS ORDERED: INSULIN LISPRO 100 UNITS/ML SQ PRN (23:45)
[2023-07-18] MEDS ORDERED: MORPHINE SULFATE 2 MG/ML SYRINGE IVP PRN (23:45)
[2023-07-18] MEDS ORDERED: ACETAMINOPHEN 325 MG TABLET PO PRN (23:45)
[2023-07-18] MEDS ORDERED: RINGERS SOLUTION,LACTATED 1,000 ML IV SCH (23:45)
[2023-07-18] MEDS ORDERED: DEXTROSE 50%-WATER 25 GM/50 ML SYRINGE IVP PRN (23:45)
[2023-07-18] MEDS ORDERED: INSULIN GLARGINE,HUM.REC.ANLOG 100 UNITS/ML SQ SCH (23:45)
[2023-07-18] MEDS ORDERED: ONDANSETRON HCL 4 MG/2 ML VIAL IVP PRN (23:45)
[2023-07-19 00:14] LABS: % IRON SATURATION 21.4 % (30-44)
[2023-07-19] MEDS ORDERED: DOCUSATE SODIUM 100 MG CAPSULE PO SCH (09:00)
[2023-07-19] MEDS ORDERED: HEPARIN SODIUM,PORCINE 5,000 UNITS/ML VIAL SQ SCH (21:00)
== END 2023-07-19 00:11 | disposition left against medical advice (07) ==
LOC: EMS 19:18
DX: L89.159 Pressure ulcer of sacral region, unspecified stage (principal); E11.65 Type 2 diabetes mellitus with hyperglycemia; F17.210 Nicotine dependence, cigarettes, uncomplicated; Z98.890 Other specified postprocedural states
CPT/HCPCS: 99285; 96374; 96361 ×2; 96375; 80053; 82962; 83540; 83550; 83930; 83880; 84484; 85025; 85045; 71101; 72170; 82948; 93005; 96372; 36415; J2270; J7120; J7030; J1815 ×2

== ENCOUNTER 2023-08-02 22:29 | Emergency (ER) | payer OTHER ==
[~2023-08-02] VITALS: Ht 157.5 cm; Wt 65.0 kg
[2023-08-02 22:31] VITALS: TEMP 97.4
[2023-08-03 00:01] LABS: BASOPHILS % (AUTO) 0.8 % (0.0-2.0); EOSINOPHILS % (AUTO) 0.1 % (1.0-6.0); HEMATOCRIT 23.8 % (41-53); HEMOGLOBIN 8.4 g/dL (13.5-17.5); LYMPHOCYTES # (AUTO) 0.7 K/uL (1.0-4.8); LYMPHOCYTES % (AUTO) 10.3 % (22.0-44.0); MEAN CORPUSCULAR HEMOGLOBIN 34.7 pg (26.0-34.0); MEAN CORPUSCULAR HGB CONC 35.2 G/dL (31.0-37.0); MEAN CORPUSCULAR VOLUME 99 fL (80-100); MONOCYTES # (AUTO) 0.5 K/uL (0.1-1.0); MONOCYTES % (AUTO) 6.5 % (2.0-9.0); NEUTROPHILS # (AUTO) 5.9 K/uL (1.8-7.7); NEUTROPHILS % (AUTO) 82.3 % (40.0-70.0); PLATELET COUNT (AUTO) 559 K/uL (150-450); RED BLOOD CELL COUNT(AUTO) 2.42 MIL/uL (4.50-5.90); RED CELL DISTRIBUTION WIDTH 13.2 % (11.5-14.5); WHITE BLOOD COUNT (AUTO) 7.1 K/uL (4.5-11.0)
[2023-08-03 00:07] LABS: ALANINE AMINOTRANSFERASE 18 U/L (12-78); ALBUMIN 2.4 g/dL (3.4-5.0); ALKALINE PHOSPHATASE 243 U/L (46-116); ANION GAP 10 mmol/L (8-16); ASPARTATE AMINOTRANSFERASE 9 U/L (15-37); BILIRUBIN,TOTAL 0.2 mg/dL (0.1-1.0); CALCIUM, TOTAL 8.9 mg/dL (8.8-10.5); CARBON DIOXIDE 26 mmol/L (22-29); CHLORIDE 96 mmol/L (98-107); CREATININE 1.17 mg/dL (0.60-1.30); GLOMERULAR FILTR. RATE CALC > 60 mL/min (>60); POTASSIUM 4.6 mmol/L (3.5-5.1); SODIUM SERUM 132 mmol/L (136-145); TOTAL PROTEIN, SERUM 8.3 g/dL (6.4-8.2); UREA NITROGEN, BLOOD 14 mg/dL (7-18)
[2023-08-03 00:19] LABS: GLUCOSE,RANDOM 455 mg/dL (70-110)
[2023-08-03] MEDS ORDERED: SODIUM CHLORIDE 0.9% 1,000 ML IV ONE (00:30)
[2023-08-03 00:33] LABS: ACETONE,BLOOD NEGATIVE (NEGATIVE)
[2023-08-03 00:42] LABS: LIPASE 57 U/L (16-77)
[2023-08-03 00:44] LABS: TROPONIN I-HIGH SENSITIVITY 7 ng/L (<76)
[2023-08-03] MEDS ORDERED: INSULIN REGULAR, HUMAN 100 UNITS/ML IVP ONE (01:00)
[2023-08-03 01:47] LABS: APPEARANCE,URINE CLEAR (CLEAR); BILIRUBIN,URINE NEGATIVE (NEGATIVE); COLOR,URINE COLORLESS (YELLOW); GLUCOSE, URINE (UA) >=1000 mg/dL (NEGATIVE); KETONES,URINE NEGATIVE (NEGATIVE); LEUKOCYTE ESTERASE ,URINE LARGE (NEGATIVE); NITRATE,URINE NEGATIVE (NEGATIVE); OCCULT BLOOD,URINE TRACE (NEGATIVE); PH,URINE 5.5 (5.0-8.0); PROTEIN,URINE NEGATIVE (NEGATIVE); SPECIFIC GRAVITIY, URINE 1.012 (1.003-1.030); UROBILINOGEN,URINE <=1.0 mg/dL (<=1.0)
[2023-08-03 01:56] LABS: PH,URINE DRUG SCREEN 5.5 (5.0-8.0)
[2023-08-03 02:00] LABS: BACTERIA,URINE None Seen /HPF (None Seen); RBC,URINE 0-2 /HPF (0-2); SQUAMOUS EPITHELIAL CELL,UR None Seen /LPF (None Seen); YEAST,URINE Moderate /HPF (None Seen)
[2023-08-03 02:01] LABS: ALCOHOL, URINE DRUG SCREEN NEGATIVE (NEGATIVE); AMPHET/METH SCREEN,URINE POSITIVE (NEGATIVE); BARBITURATE SCREEN, URINE NEGATIVE (NEGATIVE); BENZODIAZEPINES SCREEN,URINE NEGATIVE (NEGATIVE); CANNABINOID SCREEN,URINE NEGATIVE (NEGATIVE); COCAINE SCREEN,URINE NEGATIVE (NEGATIVE); METHADONE SCREEN, URINE NEGATIVE (NEGATIVE); OPIATE SCREEN,URINE NEGATIVE (NEGATIVE); PHENCYCLIDINE SCREEN,URINE NEGATIVE (NEGATIVE)
[2023-08-03] MEDS ORDERED: CEPHALEXIN MONOHYDRATE 500 MG CAPSULE PO ONE (04:30)
[2023-08-03] MEDS ORDERED: CEPH-558 PO (04:32)
[2023-08-03 06:26] VITALS: BP 131/71; PULSE 77; RESP 14
[2023-08-03 17:46] LABS: GLUCOMETER DEV NAME(LOC) ER.6; GLUCOSE,POINT OF CARE 233 MG/DL (70-110)
== END 2023-08-03 06:32 | disposition home or self-care (01) ==
LOC: EMS 22:30
DX: E11.65 Type 2 diabetes mellitus with hyperglycemia (principal); N39.0 Urinary tract infection, site not specified; F15.10 Other stimulant abuse, uncomplicated; F17.210 Nicotine dependence, cigarettes, uncomplicated; Z98.890 Other specified postprocedural states
CPT/HCPCS: 99284; 80053; 81001; 82009; 82962; 83690; 84484; 85025; 36415; 87086; 87186; 80307; 96374; 96361; 93005; J1815; J7030

== ENCOUNTER 2023-08-16 18:30 | Emergency (ER) | payer OTHER ==
[~2023-08-16] VITALS: Ht 167.6 cm; Wt 45.0 kg
[2023-08-16 18:42] VITALS: TEMP 98.4
[2023-08-16] MEDS ORDERED: SODIUM CHLORIDE 0.9% 1,000 ML IV ONE (19:15)
[2023-08-16 20:01] LABS: EOSINOPHILS % (AUTO) 0.4 % (1.0-6.0); HEMATOCRIT 25.5 % (41-53); LYMPHOCYTES # (AUTO) 0.9 K/uL (1.0-4.8); LYMPHOCYTES % (AUTO) 10.7 % (22.0-44.0); MEAN CORPUSCULAR HEMOGLOBIN 33.5 pg (26.0-34.0); MEAN CORPUSCULAR HGB CONC 35.1 G/dL (31.0-37.0); MEAN CORPUSCULAR VOLUME 95 fL (80-100); MONOCYTES # (AUTO) 0.3 K/uL (0.1-1.0); NEUTROPHILS # (AUTO) 6.7 K/uL (1.8-7.7); NEUTROPHILS % (AUTO) 83.9 % (40.0-70.0); PLATELET COUNT (AUTO) 634 K/uL (150-450); RED BLOOD CELL COUNT(AUTO) 2.67 MIL/uL (4.50-5.90); RED CELL DISTRIBUTION WIDTH 14.3 % (11.5-14.5)
[2023-08-16 20:04] LABS: ANION GAP 10 mmol/L (8-16); CALCIUM, TOTAL 8.9 mg/dL (8.8-10.5); CARBON DIOXIDE 28 mmol/L (22-29); CHLORIDE 92 mmol/L (98-107); CREATININE 1.12 mg/dL (0.60-1.30); GLOMERULAR FILTR. RATE CALC > 60 mL/min (>60); GLUCOSE,RANDOM 387 mg/dL (70-110); SODIUM SERUM 130 mmol/L (136-145); UREA NITROGEN, BLOOD 15 mg/dL (7-18)
[2023-08-16 20:10] LABS: ALANINE AMINOTRANSFERASE 16 U/L (12-78); ALKALINE PHOSPHATASE 160 U/L (46-116); ASPARTATE AMINOTRANSFERASE 14 U/L (15-37); BILIRUBIN,TOTAL 0.4 mg/dL (0.1-1.0); TOTAL PROTEIN, SERUM 8.4 g/dL (6.4-8.2)
[2023-08-16 22:11] VITALS: BP 119/80; PULSE 90; RESP 18
[2023-08-16] MEDS ORDERED: MORPHINE SULFATE 2 MG/ML SYRINGE IVP ONE (23:00)
[2023-08-16] MEDS ORDERED: CefTRIAXone 1 GM/DEXTROSE 50 ML IV ONE (23:00)
[2023-08-16] MEDS ORDERED: KETOROLAC TROMETHAMINE 30 MG/ML VIAL IVP ONE (23:00)
[2023-08-16] MEDS ORDERED: ONDANSETRON HCL 4 MG/2 ML VIAL IVP ONE (23:00)
[2023-08-16] MEDS ORDERED: IBUP-1492 PO (23:25)
[2023-08-16] MEDS ORDERED: TRAM-559 PO (23:25)
== END 2023-08-16 23:51 | disposition still patient (30) ==
LOC: EMS 18:31
DX: S20.211A Contusion of right front wall of thorax, initial encounter (principal); E11.9 Type 2 diabetes mellitus without complications; F17.210 Nicotine dependence, cigarettes, uncomplicated; Z87.01 Personal history of pneumonia (recurrent); Z98.890 Other specified postprocedural states; W01.0XXA Fall on same level from slipping, tripping and stumbling without subsequent striking against object, initial encounter; Y93.89 Activity, other specified; Y92.89 Other specified places as the place of occurrence of the external cause; Y99.8 Other external cause status
CPT/HCPCS: 99284; 96365; 96375; 96361; 80053; 82962; 85025; 36415; 71101; J0696; J1885; J2270; J2405; J7030

== ENCOUNTER 2023-09-09 19:48 | Emergency (ER) | payer OTHER ==
[~2023-09-09] VITALS: Ht 167.6 cm; Wt 45.0 kg
[~2023-09-09 19:48] MED LIST changes: +IBUP-1492 PO; +TRAM-559 PO
[2023-09-09 19:56] VITALS: BP 148/91; PULSE 93; RESP 17; TEMP 98.1
[2023-09-09 21:34] LABS: BASOPHILS % (AUTO) 2.8 % (0.0-2.0); EOSINOPHILS % (AUTO) 1.3 % (1.0-6.0); HEMATOCRIT 25.6 % (41-53); HEMOGLOBIN 8.6 g/dL (13.5-17.5); LYMPHOCYTES # (AUTO) 1.1 K/uL (1.0-4.8); LYMPHOCYTES % (AUTO) 26.3 % (22.0-44.0); MEAN CORPUSCULAR HEMOGLOBIN 32.2 pg (26.0-34.0); MEAN CORPUSCULAR HGB CONC 33.7 G/dL (31.0-37.0); MEAN CORPUSCULAR VOLUME 95 fL (80-100); MONOCYTES # (AUTO) 0.3 K/uL (0.1-1.0); MONOCYTES % (AUTO) 7.4 % (2.0-9.0); NEUTROPHILS # (AUTO) 2.7 K/uL (1.8-7.7); NEUTROPHILS % (AUTO) 62.2 % (40.0-70.0); PLATELET COUNT (AUTO) 337 K/uL (150-450); RED BLOOD CELL COUNT(AUTO) 2.69 MIL/uL (4.50-5.90); RED CELL DISTRIBUTION WIDTH 13.9 % (11.5-14.5); WHITE BLOOD COUNT (AUTO) 4.3 K/uL (4.5-11.0)
[2023-09-09 21:44] LABS: ANION GAP 9 mmol/L (8-16); CALCIUM, TOTAL 8.7 mg/dL (8.8-10.5); CARBON DIOXIDE 27 mmol/L (22-29); CHLORIDE 97 mmol/L (98-107); CREATININE 1.19 mg/dL (0.60-1.30); GLOMERULAR FILTR. RATE CALC > 60 mL/min (>60); GLUCOSE,RANDOM 309 mg/dL (70-110); POTASSIUM 3.8 mmol/L (3.5-5.1); SODIUM SERUM 132 mmol/L (136-145); UREA NITROGEN, BLOOD 13 mg/dL (7-18)
[2023-09-09 21:49] LABS: ALANINE AMINOTRANSFERASE 10 U/L (12-78); ALBUMIN 3.2 g/dL (3.4-5.0); ALKALINE PHOSPHATASE 106 U/L (46-116); ASPARTATE AMINOTRANSFERASE 12 U/L (15-37); BILIRUBIN,TOTAL 0.3 mg/dL (0.1-1.0); TOTAL PROTEIN, SERUM 8.2 g/dL (6.4-8.2)
[2023-09-09] MEDS: HYDROCODONE/ACETAMINOPHEN 5-325 MG TABLET PO ONE (22:45)
== END 2023-09-09 22:50 | disposition home or self-care (01) ==
LOC: EMS 19:48
DX: T83.098A Other mechanical complication of other urinary catheter, initial encounter (principal); R30.0 Dysuria; E11.9 Type 2 diabetes mellitus without complications; F17.210 Nicotine dependence, cigarettes, uncomplicated; Z98.890 Other specified postprocedural states
CPT/HCPCS: 80053; 82962; 85025; 99283

== ENCOUNTER 2023-09-30 18:06 | Emergency (ER) | payer OTHER ==
[~2023-09-30] VITALS: Ht 167.6 cm; Wt 43.2 kg
[~2023-09-30 18:06] MED LIST changes: -CEPH-558 PO; -IBUP-1492 PO; -TRAM-559 PO
[2023-09-30 18:10] VITALS: BP 138/93; PULSE 101; RESP 18; TEMP 97.9
== END 2023-09-30 20:00 | disposition left against medical advice (07) ==
LOC: EMS 18:07
DX: E11.65 Type 2 diabetes mellitus with hyperglycemia (principal); Z53.21 Procedure and treatment not carried out due to patient leaving prior to being seen by health care provider
CPT/HCPCS: 93005; 99281; Z7502

== ENCOUNTER 2023-11-14 19:32 | Emergency (ER) | payer OTHER, MEDICARE ==
[~2023-11-14] VITALS: Ht 167.6 cm; Wt 45.5 kg
[2023-11-14 19:42] VITALS: TEMP 98.2
[2023-11-14 19:56] LABS: GLUCOMETER DEV NAME(LOC) ER.6; GLUCOSE,POINT OF CARE 95 MG/DL (70-110)
[2023-11-14 21:56] VITALS: BP 112/74; PULSE 87; RESP 16
[2023-11-14] MEDS: ACETAMINOPHEN 325 MG TABLET PO ONE (22:20)
== END 2023-11-15 | disposition left against medical advice (07) ==
LOC: EMS 19:36
DX: S20.212A Contusion of left front wall of thorax, initial encounter (principal); E11.9 Type 2 diabetes mellitus without complications; F17.210 Nicotine dependence, cigarettes, uncomplicated; Z85.9 Personal history of malignant neoplasm, unspecified; W19.XXXA Unspecified fall, initial encounter; Y93.89 Activity, other specified; Y92.89 Other specified places as the place of occurrence of the external cause; Y99.8 Other external cause status
CPT/HCPCS: 71100; 82962; 99283